=== PATIENT | male | born 1940 | race Caucasian/White ===

== ENCOUNTER 2022-07-08 18:10 | Emergency (ER) | payer MEDICARE, BC, SELFPAY ==
[2022-07-08 18:13] VITALS: BP 151/81; PULSE 91; TEMP 36.2; O2SAT 97; BMI 35.3
--- NOTE | 2022-07-08 18:26 | CRLHL7_ITS ---
For Patients: As a result of the Cures Act, medical imaging exams and procedure reports are released immediately into your electronic medical record. You may view this report before your referring provider. If you have questions, please contact your health care provider. INDICATION: Cough, weakness. TECHNIQUE: Chest 1 views. COMPARISON: None. FINDINGS: Cardiovascular and mediastinum: Cardiomediastinal silhouette is within normal limits. Lungs and pleural spaces: Lungs are clear. No sign of pleural effusion. No pneumothorax. Bones and soft tissues: No significant findings. Median sternotomy wires appear to be intact. IMPRESSION: No acute cardiopulmonary process identified. Dictated by Dimas Crenshaw MD @ 07/08/2022 7:23:04 PM (Electronically Signed)
--- NOTE | 2022-07-08 18:28 | ED.GENADULT ---
HPI - General Adult General Chief complaint: Weakness Stated complaint: Possible stroke Time Seen by Provider: 07/08/22 18:20 History of Present Illness HPI narrative: This 82-year-old male comes in with his because of generalized weakness. He states that he has had a cough and upper respiratory symptoms for the past week. 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 Today after lunch he was unable to have enough strength to get back up into the combine. He does not report any unilateral weakness. He is able to ambulate. He does have a history of a stroke with some right-sided weakness that occurred 7 years ago. He has recovered reasonably well from this. He does not report any fevers. He does not report any shortness of breath. He states that he has been working in a [employer] conditions and states that the corn he was harvesting few days ago head smut. Related Data Home Medications Medication Instructions Recorded Confirmed amlodipine 5 mg tablet mg 07/08/22 clopidogrel 75 mg tablet mg 07/08/22 hydrochlorothiazide 25 mg tablet mg 07/08/22 metoprolol tartrate 50 mg tablet mg 07/08/22 pravastatin 40 mg tablet mg 07/08/22 Allergies Allergy/AdvReac Type Severity Reaction Status Date / Time No Known Drug Allergies Allergy Verified 07/08/22 18:17 Review of Systems Status of ROS: Reports: 10 or more systems reviewed and unremarkable except as noted in History and below Narrative: Constitutional: No fevers, no weight gain or loss. Eyes: No discharge. No vision changes. HENT: No sore throat, no ear pain. Some nasal congestion. Cardiovascular: No chest pain, no palpitations. Respiratory: No shortness of breath, no wheezes. He does report a cough. Gastrointestinal: No abdominal pain, no vomiting, no diarrhea. Genitourinary: No dysuria, no hematuria. Musculoskeletal: Normal range of motion. Skin: No rashes, no pruritis. Neurological: No dizziness, sensory change, speech change. He reports generalized weakness but no unilateral weakness. Endo/Heme/Allergies: No bruising or bleeding. No polydipsia. Pysch: no suicidality, no anxiety, no insomnia. All other systems reviewed and are negative. PFSH PFSH Social History Smoking Status: Former smoker How often do you have a drink containing alcohol: 4 or more times a week How many standard drinks containing alcohol do you have on a typical day: 1 or 2 AUDIT-C Alcohol total score: 4 Non-prescribed substance use: denies use Exam Narrative: Exam Narrative: Constitutional: Well-developed, well-nourished, no acute distress. HEENT: Normocephalic, atraumatic. Neck: Normal range of motion. Nontender. Supple. Heart: Regular. No murmurs. Normal rate. Intact distal pulses. Lungs: Clear to auscultation. No chest discomfort. No wheezes, rhonchi, or rales. Abdomen: Normal bowel sounds. Nontender. No rebound tenderness. Genitalia: Deferred. Back: No midline tenderness. Normal range of motion. Extremities: Normal range of motion. No injury. Skin: Intact. No rash. Warm. No erythema or pallor. Neurologic: No altered sensation. No weakness. Alert and oriented. No unilateral weakness. No facial asymmetry. He is able to ambulate. He needed some assistance when getting from sitting position to standing but was able to transfer without assistance. Psychiatric: No suicidality. No anxiety or depression. No insomnia. Nursing notes and vitals signs are reviewed. Const: Vital Signs, click to edit/add: Vital Signs - 24 hr 07/08/22 18:13 Temperature 97.2 F L Pulse Rate [Pulse Oximeter] 91 Blood Pressure [Ri ght Upper Arm] 151/81 H Pulse Oximetry 97 Oxygen Delivery Me thod Room Air Course Vital Signs Vital signs: Initial Vital Signs Temperature 97.2 F L 07/08/22 18:13 Temperature Source Temporal Artery Scan 07/08/22 18:13 Pulse Rate 91 07/08/22 18:13 Blood Pressure 151/81 H 07/08/22 18:13 Blood Pressure Mean 104 07/08/22 18:13 Blood Pressure Position Supine 07/08/22 18:13 Pulse Oximetry 97 07/08/22 18:13 Oxygen Delivery Method 07/08/22 18:13 Vital Signs Temperature 97.2 F L 07/08/22 18:13 Pulse Rate 91 07/08/22 18:13 Blood Pressure 151/81 H 07/08/22 18:13 Pulse Oximetry 97 07/08/22 18:13 Oxygen Delivery Method 07/08/22 18:13 Temperature 97.2 F L 07/08/22 18:13 Pulse Rate 91 07/08/22 18:13 Blood Pressure 151/81 H 07/08/22 18:13 Pulse Oximetry 97 07/08/22 18:13 Oxygen Delivery Method 07/08/22 18:13 Medical Decision Making MDM Narrative Medical decision making narrative: This patient comes in reporting generalized weakness that came on today. He also has had a cough for about a week. He arrives with normal vital signs except for slightly elevated blood pressure at the time. X-ray imaging of his chest shows no acute pulmonary disease. Additionally lab results returned with reassuring findings. His COVID and influenza tests also are negative. 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 His lab and imaging results are rather reassuring today but I did explain to him that his body may be telling him especially at his age that he needs to give time for rest and recovery. He is okay with this plan and is reassured with the results of testing done here. He will use [id number] medicines as needed and directed. Lab Data Labs: Lab Results 07/08/22 07/08/22 07/08/22 Range/Units 18:40 18:40 18:40 WBC 10.13 (4.50-11.00) K/uL RBC 4.66 (4.30-5.90) m/uL Hgb 14.6 (13.5-17.5) gm/dL Hct 44.0 (37.0-53.0) % MCV 94 (80-100) fL MCH 31 (26-34) pg MCHC 33 (32-36) gm/dL RDW Coeff of Stephanie 13.2 (11.5-15.5) % Plt Count 288 (140-440) K/uL Neut % (Auto) 69.9 (42.0-72.0) % Lymph % (Auto) 19.4 L (20-44) % Wilbarger % (Auto) 7.3 (0.0-11.0) % Eos % (Auto) 2.5 (0.0-7.0) % Baso % (Auto) 0.6 (0.0-3.0) % Neut # (Auto) 7.08 H (1.7-7.0) K/uL Lymph # (Auto) 2.00 (0.90-2.90) K/uL Wilbarger # (Auto) 0.70 (0.00-0.90) K/UL Eos # (Auto) 0.25 (0.00-0.50) K/uL Baso # (Auto) 0.06 (0.00-0.30) K/uL Abs Immat Gran (auto) 0.03 (0.00-0.30) K/uL Sodium 139 (135-149) mmol/L Potassium 3.8 (3.6-5.1) mmol/L Chloride 101 (96-114) mmol/L Carbon Dioxide 30 (20-32) mmol/L BUN 27 (7-30) mg/dL Creatinine 1.7 H (0.5-1.5) mg/dL Estimated Creat Clear 34.59 Estimated GFR 40 ml/min Glucose 160 H (60-115) mg/dL Calcium 10.0 (8.4-10.6) mg/dL NT-Pro-B Natriuret Pep 505 H (0-450) PG/mL SARS-CoV-2 (PCR) Negative SARS-CoV-2 (Negative) Influenza Type A (PCR) Negative PCR FLU A (Negative) Influenza Type B (PCR) Negative PCR FLU B (Negative) POC Troponin I (0.01-0.04) ng/ml 07/08/22 Range/Units 18:45 WBC (4.50-11.00) K/uL RBC (4.30-5.90) m/uL Hgb (13.5-17.5) gm/dL Hct (37.0-53.0) % MCV (80-100) fL MCH (26-34) pg MCHC (32-36) gm/dL RDW Coeff of Stephanie (11.5-15.5) % Plt Count (140-440) K/uL Neut % (Auto) (42.0-72.0) % Lymph % (Auto) (20-44) % Wilbarger % (Auto) (0.0-11.0) % Eos % (Auto) (0.0-7.0) % Baso % (Auto) (0.0-3.0) % Neut # (Auto) (1.7-7.0) K/uL Lymph # (Auto) (0.90-2.90) K/uL Wilbarger # (Auto) (0.00-0.90) K/UL Eos # (Auto) (0.00-0.50) K/uL Baso # (Auto) (0.00-0.30) K/uL Abs Immat Gran (auto) (0.00-0.30) K/uL Sodium (135-149) mmol/L Potassium (3.6-5.1) mmol/L Chloride (96-114) mmol/L Carbon Dioxide (20-32) mmol/L BUN (7-30) mg/dL Creatinine (0.5-1.5) mg/dL Estimated Creat Clear Estimated GFR ml/min Glucose (60-115) mg/dL Calcium (8.4-10.6) mg/dL NT-Pro-B Natriuret Pep (0-450) PG/mL SARS-CoV-2 (PCR) (Negative) Influenza Type A (PCR) (Negative) Influenza Type B (PCR) (Negative) POC Troponin I 0.00 L (0.01-0.04) ng/ml Imaging Data Chest x-ray: Radiologist's impression: No acute cardiopulmonary process identified. ECG Data Attestation: I personally reviewed and interpreted this ECG as follows: Interpretation: Normal sinus rhythm. Rate is 89 beats per minute. There are no ST or T-wave abnormalities. There is a right bundle branch block. Discharge Plan Discharge Clinical Impression: Acute upper respiratory infection Patient Disposition: Home, Self-Care Condition: Stable Additional Instructions: Use [id number] medicines as needed and directed. Follow up with MD or return if worsening symptoms happen. Prescriptions: No Action pravastatin 40 mg tablet Label Comments: TAKE 1 TABLET BY MOUTH AT BEDTIME clopidogrel 75 mg tablet Label Comments: TAKE 1 TABLET BY MOUTH ONCE DAILY amlodipine 5 mg tablet Label Comments: TAKE 1 TABLET BY MOUTH ONCE DAILY metoprolol tartrate 50 mg tablet Label Comments: TAKE 1 TABLET BY MOUTH TWICE DAILY hydrochlorothiazide 25 mg tablet Label Comments: TAKE 1 TABLET BY MOUTH ONCE DAILY Follow Up/Referrals: Masoud Torres MD [Primary Care Provider] - Stand Alone Forms: [employer] Info Instructions
[2022-07-08 19:00] VITALS: BP 163/85; PULSE 85; RESP 18; O2SAT 95
[2022-07-08 19:03] LABS: Basophils Absolute Auto 0.06 K/uL (0.00-0.30); Basophils Percent Auto 0.6 % (0.0-3.0); Eosinophils Absolute Auto 0.25 K/uL (0.00-0.50); Eosinophils Percent Auto 2.5 % (0.0-7.0); Hemoglobin* 14.6 gm/dL (13.5-17.5); Immature Granulocytes Abs Auto 0.03 K/uL (0.00-0.30); Lymphocytes Percent Auto 19.4 % (20-44); Mean Corpuscular HGB Conc 33 gm/dL (32-36); Mean Corpuscular Hemoglobin 31 pg (26-34); Mean Corpuscular Volume 94 fL (80-100); Monocytes Percent Auto 7.3 % (0.0-11.0); Neutrophils Absolute Auto 7.08 K/uL (1.7-7.0); Neutrophils Percent Auto 69.9 % (42.0-72.0); Platelet Count* 288 K/uL (140-440); RDW Coefficient of Variation % 13.2 % (11.5-15.5); Red Blood Count 4.66 m/uL (4.30-5.90); White Blood Count* 10.13 K/uL (4.50-11.00)
[2022-07-08 19:06] LABS: Slide Review Reflex No
[2022-07-08 19:14] LABS: Chloride* 101 mmol/L (96-114); Potassium* 3.8 mmol/L (3.6-5.1); Sodium* 139 mmol/L (135-149)
[2022-07-08 19:16] LABS: Carbon Dioxide* 30 mmol/L (20-32); Creatinine* 1.7 mg/dL (0.5-1.5); Est. Creatinine Clearance* 34.59; Estimated Glomerular Filt Rate 40 ml/min
[2022-07-08 19:17] LABS: Blood Urea Nitrogen* 27 mg/dL (7-30); Glucose* 160 mg/dL (60-115)
[2022-07-08 19:25] LABS: NT Pro B Type NatriureticPept* 505 PG/mL (0-450)
[2022-07-08 19:39] LABS: PCR FLU A Negative PCR FLU A (Negative); PCR FLU B Negative PCR FLU B (Negative)
[2022-07-08 20:36] LABS: SARS PCR* Negative SARS-CoV-2 (Negative)
[2022-07-08 21:00] VITALS: BP 144/79; BP 158/105; PULSE 82; PULSE 87; RESP 18; RESP 20; O2SAT 93; O2SAT 97
== END 2022-07-08 21:48 | disposition home or self-care (01) ==
PROVIDERS: Emergency Provider Emergency Medicine Emergency Medical Services; PCP Family Medicine
DX: J06.9 Acute upper respiratory infection, unspecified (principal); I45.10 Unspecified right bundle-branch block; Z20.822 Contact with and (suspected) exposure to COVID-19; Z87.891 Personal history of nicotine dependence
CPT/HCPCS: 36415; 71045; 80048; 83880; 85025; 87631; 93005; 99284; 99285

== ENCOUNTER 2022-09-19 10:19 | Outpatient (CLI) | payer MEDICARE, BC, SELFPAY ==
[2022-09-19 22:16] LABS: Albumin* 4.3 g/dL (3.3-5.0); Chloride* 106 mmol/L (96-114)
[2022-09-19 22:17] LABS: Potassium* 4.5 mmol/L (3.6-5.1); Sodium* 142 mmol/L (135-149)
[2022-09-19 22:19] LABS: Aspartate Amino Transferase* 21 U/L (12-35); Bilirubin Total* 0.6 mg/dL (0.1-1.5); Blood Urea Nitrogen* 21 mg/dL (7-30); Carbon Dioxide* 32 mmol/L (20-32); Creatinine* 1.3 mg/dL (0.5-1.5); Estimated Glomerular Filt Rate 55 ml/min; Total Protein* 6.8 g/dL (6.0-8.3)
[2022-09-19 22:20] LABS: Alanine Aminotransferase* 23 U/L (4-50); Alkaline Phosphatase* 107 U/L (40-150); Calcium* 9.8 mg/dL (8.4-10.6); Glucose* 142 mg/dL (60-115); Uric Acid* 7.8 mg/dL (2.2-8.4)
== END 2022-09-19 10:20 | disposition home or self-care (01) ==
PROVIDERS: PCP Family Medicine; Visit Provider Family Medicine
DX: Z00.00 Encounter for general adult medical examination without abnormal findings (principal); N18.9 Chronic kidney disease, unspecified; N28.9 Disorder of kidney and ureter, unspecified; M10.9 Gout, unspecified; I10 Essential (primary) hypertension; E78.5 Hyperlipidemia, unspecified
CPT/HCPCS: 80053; 84550

== ENCOUNTER 2022-10-03 09:50 | Outpatient (CLI) | payer MEDICARE, BC, SELFPAY ==
[2022-10-03 15:34] LABS: Microalbumin Creatinine Ratio 0 mg/g (0-30); Microalbumin Urine 1 mg/dL
== END 2022-10-03 09:51 | disposition home or self-care (01) ==
PROVIDERS: PCP Family Medicine; Visit Provider Family Medicine
DX: E11.9 Type 2 diabetes mellitus without complications (principal)
CPT/HCPCS: 82043; 82570

== ENCOUNTER 2023-01-21 11:12 | Outpatient (CLI) | payer MEDICARE, BC, SELFPAY | END 2023-01-21 11:13 | disposition home or self-care (01) | LOC: FRMREF 11:25 | PROVIDERS: PCP Family Medicine; Visit Provider Family Medicine | DX: I10 Essential (primary) hypertension (principal); R73.03 Prediabetes | CPT/HCPCS: 80048 ==

== ENCOUNTER 2023-05-01 07:57 | Outpatient (CLI) | payer MEDICARE, BC, SELFPAY ==
--- NOTE | 2023-05-01 08:00 | CRLHL7_ITS ---
For Patients: As a result of the 21st Century Cures Act, medical imaging exams and procedure reports are released immediately into your electronic medical record. You may view this report before your referring provider. If you have questions, please contact your health care provider. INDICATION: Low back pain. COMPARISON: None. TECHNIQUE: Noncontrast CT lumbar spine. FINDINGS: Mild lumbar curve convex the left. In sagittal plane, normal vertebral body alignment. Chronic mild loss of height and anterior wedging of the L1 and L2 vertebral bodies. T12-L1: No spinal canal neural foraminal narrowing. L1-2: Disc degeneration. Diffuse disc bulge. No narrowing of the spinal canal. No neural foraminal narrowing. Mild facet arthropathy. L2-3: Advanced disc degeneration and loss disc height. Vacuum disc. Diffuse disc bulge. Mild narrowing of spinal canal. Mild narrowing of the left neural foramen. No narrowing of the right neural foramen. Moderate arthropathy. L3-4: Advanced disc degeneration. Loss disc height. Vacuum disc. Diffuse disc bulge. Mild narrowing of spinal canal. Mild narrowing of the right neural foramen. No narrowing of the left neural foramen. Moderate facet arthropathy. L4-5: Advanced disc degeneration. Loss disc height. Vacuum disc. Diffuse disc bulge and endplate osteophytic ridging eccentric to the right. Combined with facet arthropathy, there is moderate severe narrowing of spinal canal. Bilateral subarticular recess narrowing with potential impingement of the traversing L5 nerve roots bilaterally. Mild narrowing of bilateral foramina. Moderate arthropathy. L5-S1: Advanced disc degeneration. Loss of disc height. Vacuum disc. No narrowing of spinal canal. No impingement of the traversing S1 nerve roots. Moderate narrowing of bilateral foramina. Moderate arthropathy. Degenerative changes of the SI joints. Vascular calcifications. IMPRESSION: 1. Mild lumbar curve convex to the left. Incidental plane, normal alignment. No fractures. 2. Lumbar spondylosis. 3. At L2-3, mild narrowing of the spinal canal and left neural foramina 4. At L3-4, mild narrowing of the spinal canal and right neuroforamen 5. At L4-5, moderate to severe narrowing of spinal canal. Potential impingement of the traversing L5 nerve roots. Mild narrowing of the bilateral foramina 6. At L5-S1, moderate narrowing of the bilateral neural foramina Please note that all CT scans at this facility use dose modulation, iterative reconstruction, and/or weight-based dosing when appropriate to reduce radiation dose to as low as reasonably achievable. Dictated by Denis Rivera MD @ 05/01/2023 1:26:35 PM (Electronically Signed)
== END 2023-05-01 07:58 | disposition home or self-care (01) ==
LOC: CT 07:58
PROVIDERS: PCP Family Medicine; Visit Provider Nurse Practitioner
DX: M54.50 Low back pain, unspecified (principal); M47.896 Other spondylosis, lumbar region; M51.26 Other intervertebral disc displacement, lumbar region
CPT/HCPCS: 72131

== ENCOUNTER 2023-08-10 08:36 | Inpatient (IN) | payer MEDICARE, BC, SELFPAY ==
[2023-08-10] VITALS (16 sets, daily range): BP systolic 115–168; BP diastolic 59–106; PULSE 84–112; RESP 20–32; TEMP 36.6–37.3; O2SAT 89–98; BMI 36.9; BMI 36.7
--- NOTE | 2023-08-10 09:02 | CRLHL7_ITS ---
For Patients: As a result of the Cures Act, medical imaging exams and procedure reports are released immediately into your electronic medical record. You may view this report before your referring provider. If you have questions, please contact your health care provider. INDICATION: Difficulty breathing. Wheezing. RSV. COMPARISON: 08/08/2023. FINDINGS: Two views of the chest were obtained. The cardiac silhouette and pulmonary vasculature are within normal limits. There are sternotomy wires. The lungs are clear bilaterally. IMPRESSION: Stable chest x-ray. No evidence of acute pulmonary disease. Dictated by Jarrell Prado MD @ 08/10/2023 10:15:20 AM (Electronically Signed)
[2023-08-10] MEDS: IPRAT-ALBUT 0.5-2.5 MG/3 ML NEB 1 NEB IH ×4 (09:19→21:02)
--- NOTE | 2023-08-10 09:21 | RESP.RT ---
Patient was diagnosed with RSV. He has been coughing up green mucus lately. He has swollen feet and SATs improved when head of bed was elevated. He is currently SATing 95% on 2L NC.
[2023-08-10] MEDS: predniSONE 20 MG TABLET PO (09:29)
[2023-08-10 09:34] LABS: Lactate* 1.2 mmol/L (0.5-1.9)
[2023-08-10 09:37] LABS: Basophils Absolute Auto 0.02 K/uL (0.00-0.30); Basophils Percent Auto 0.2 % (0.0-3.0); Eosinophils Absolute Auto 0.03 K/uL (0.00-0.50); Eosinophils Percent Auto 0.4 % (0.0-7.0); Hematocrit 39.8 % (37.0-53.0); Hemoglobin* 12.8 gm/dL (13.5-17.5); Immature Granulocytes Abs Auto 0.03 K/uL (0.00-0.30); Immature Granulocytes Pct Auto 0.4 %; Lymphocytes Percent Auto 6.8 % (20-44); Mean Corpuscular HGB Conc 32 gm/dL (32-36); Mean Corpuscular Hemoglobin 31 pg (26-34); Mean Corpuscular Volume 98 fL (80-100); Monocytes Percent Auto 5.7 % (0.0-11.0); Neutrophils Percent Auto 86.5 % (42.0-72.0); Platelet Count* 222 K/uL (140-440); RDW Coefficient of Variation % 13.4 % (11.5-15.5); Red Blood Count 4.08 m/uL (4.30-5.90); White Blood Count* 8.08 K/uL (4.50-11.00)
[2023-08-10 09:54] LABS: Chloride* 101 mmol/L (96-114); Potassium* 4.6 mmol/L (3.6-5.1); Sodium* 138 mmol/L (135-149)
[2023-08-10 09:56] LABS: Creatinine* 1.3 mg/dL (0.5-1.5); Est. Creatinine Clearance* 43.05; Estimated Glomerular Filt Rate 55 ml/min
[2023-08-10 09:57] LABS: Anion Gap 8 mEq/L (7-15); Blood Urea Nitrogen* 24 mg/dL (7-30); Calcium* 9.1 mg/dL (8.4-10.6); Carbon Dioxide* 29 mmol/L (20-32); Glucose* 194 mg/dL (60-115)
[2023-08-10 09:59] LABS: Slide Review Reflex No
[2023-08-10 10:11] LABS: NT Pro B Type NatriureticPept* 1200 pg/mL; Troponin I* < 0.01 ng/mL (0.01-0.04)
--- NOTE | 2023-08-10 10:25 | ED_ITS ---
HPI - General Adult General Chief complaint: Shortness of Breath/Dyspnea Stated complaint: difficulty breathing, RSV, wheezing Time Seen by Provider: 08/10/23 08:45 Source: patient Mode of arrival: ambulatory Limitations: no limitations History of Present Illness HPI narrative: 83-year-old male with an extensive medical history consistent of obesity, diabetes type 2, dysphagia, gout, restless legs syndrome, hearing loss, renal insufficiency, hypertension, hyperlipidemia, GERD, history of CVA and coronary artery disease presenting today with shortness of breath. Patient states that he was diagnosed with RSV on 08/06/2023 any has progressively gotten slightly worse every day since. He states that he was sent home with a steroid and nebulizers which have not been helping. He denies fevers or chills. No nausea or vomiting. Appetite has been good. Shortness of breath gets worse with any activity. Related Data Home Medications Medication Instructions Recorded Confirmed sildenafil 100 mg tablet 100 mg PO .As Needed PRN 07/23/22 08/08/23 aspirin 325 mg tablet 325 mg PO QDAY 08/26/22 08/08/23 omeprazole magnesium 20 mg 20 mg PO QDAY 11/11/22 08/08/23 tablet,delayed release (Prilosec OTC) Previous Rx's Medication Instructions Recorded pramipexole 0.5 mg tablet 0.5 mg PO QHS #90 tabs 08/26/22 amlodipine 5 mg tablet 5 mg PO QDAY #90 tabs 09/19/22 losartan 25 mg tablet 25 mg PO QDAY #90 tabs 09/19/22 metoprolol tartrate 50 mg tablet 50 mg PO BID #180 tabs 09/19/22 tamsulosin 0.4 mg capsule 0.4 mg PO QHS #90 caps 09/19/22 amoxicillin 500 mg capsule 2,000 mg (4 x 500 mg) PO ONCE PRN 12/17/22 dental #16 caps benzonatate 200 mg capsule 200 mg PO TID PRN cough #30 caps 07/17/23 albuterol sulfate 2.5 mg/3 mL 2.5 mg (3 mL) inhalation Q4-6H PRN 08/08/23 (0.083 %) solution for nebulization shortness of breath or wheezing #75 mL prednisone 20 mg tablet 40 mg (2 x 20 mg) PO QDAY 5 days 08/08/23 #10 tabs Allergies Allergy/AdvReac Type Severity Reaction Status Date / Time lisinopril AdvReac Intermediate Chest Pain Verified 08/08/23 14:27 pravastatin AdvReac Mild myalgias Verified 08/08/23 14:27 tramadol AdvReac Unknown Dizziness Verified 08/08/23 14:27 [facility] Medical History (Updated 08/10/23 @ 12:15 by Radha Mckeon MD) RSV (acute bronchiolitis due to respiratory syncytial virus) ?J21.0 - Acute bronchiolitis due to respiratory syncytial virus (ICD-10) Wheezing ?R06.2 - Wheezing (ICD-10) Sinusitis ?J32.9 - Chronic sinusitis, unspecified (ICD-10) Shortness of breath ?R06.02 - Shortness of breath (ICD-10) Cough ?R05.9 - Cough, unspecified (ICD-10) Constipation ?K59.00 - Constipation, unspecified (ICD-10) Calculus of kidney (07/01/12) ?N20.0 - Calculus of kidney (ICD-10) Surgical History 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) ?Z96.659 - Presence of unspecified artificial knee joint (ICD-10) History of tonsillectomy (08/20/10) ?Z90.89 - Acquired absence of other organs (ICD-10) History of coronary artery bypass surgery (08/20/10) ?Z95.1 - Presence of aortocoronary bypass graft (ICD-10) Family History Mother Coronary artery disease Family/Other High blood pressure Social History Smoking Status: Former smoker Do you use any of these nicotine containing products: None Second hand tobacco smoke exposure: No How often do you have a drink containing alcohol: 2-4 times a month How many standard drinks containing alcohol do you have on a typical day: 1 or 2 How often do you have six or more drinks on one occasion: Never AUDIT-C Alcohol total score: 2 Non-prescribed substance use: denies use Little interest or pleasure in doing things: not at all Feeling down, depressed, or hopeless: not at all service: No Exam Const: Vital Signs, click to edit/add: Vital Signs - 24 hr 08/10/23 08:46 08/10/23 09:00 08/10/23 09:00 Temperature 99.2 F Pulse Rate 93 Pulse Rate [Apical ] 94 Respiratory Rate 32 H Blood Pressure Blood Pressure [Ri ght Upper Arm] 137/83 Pulse Oximetry 89 91 95 Oxygen Delivery Me thod Room Air Nasal Cannula Oxygen Flow Rate 2 08/10/23 09:02 08/10/23 09:02 08/10/23 09:32 Temperature Pulse Rate 93 91 Pulse Rate [Apical ] Respiratory Rate 22 20 Blood Pressure 136/75 123/75 Blood Pressure [Ri ght Upper Arm] Pulse Oximetry 94 95 95 Oxygen Delivery Me thod Oxygen Flow Rate 08/10/23 09:56 08/10/23 10:02 08/10/23 10:32 Temperature Pulse Rate 97 94 93 Pulse Rate [Apical ] Respiratory Rate 22 22 23 Blood Pressure 135/106 H 142/102 H 136/73 Blood Pressure [Ri ght Upper Arm] Pulse Oximetry 95 94 92 Oxygen Delivery Me thod Nasal Cannula Oxygen Flow Rate 2 08/10/23 11:02 Temperature Pulse Rate 96 Pulse Rate [Apical ] Respiratory Rate 22 Blood Pressure 132/69 Blood Pressure [Ri ght Upper Arm] Pulse Oximetry 94 Oxygen Delivery Me thod Nasal Cannula Oxygen Flow Rate 2 Course Course ED Course: IV was established, patient placed on 2 L nasal cannula were brings his oxygen saturation into the low 90s. Patient received a DuoNeb and another 20 mg of prednisone for a total of 60 mg of prednisone this morning. Patient did take 40 mg of prednisone just prior to coming to the ED. EKG, read by me, shows sinus arrhythmia with a first-degree AV block, right bundle-branch block, pulse 95. Labs were drawn, results unremarkable. Chest x-ray, read by me, does not show any acute infiltrates. COVID and influenza negative, RSV was not redone. Vital Signs Vital signs: Initial Vital Signs Temperature 99.2 F 08/10/23 08:46 Temperature Source Temporal Artery Scan 08/10/23 08:46 Pulse Rate 94 08/10/23 08:46 Pulse Rhythm Regular 08/10/23 08:46 Respiratory Rate 32 H 08/10/23 08:46 Blood Pressure 137/83 11/19/23 08:46 Blood Pressure Mean 101 08/10/23 08:46 Blood Pressure Position Supine 08/10/23 08:46 Pulse Oximetry 89 08/10/23 08:46 Oxygen Delivery Method Room Air 08/10/23 08:46 Vital Signs Temperature 99.2 F 08/10/23 08:46 Pulse Rate 94 08/10/23 08:46 Respiratory Rate 32 H 08/10/23 08:46 Blood Pressure 137/83 08/10/23 08:46 Pulse Oximetry 89 08/10/23 08:46 Oxygen Delivery Method Room Air 08/10/23 08:46 Temperature 99.2 F 08/10/23 08:46 Pulse Rate 96 08/10/23 11:02 Respiratory Rate 22 08/10/23 11:02 Blood Pressure 132/69 08/10/23 11:02 Pulse Oximetry 94 08/10/23 11:02 Oxygen Delivery Method Nasal Cannula 08/10/23 11:02 Oxygen Flow Rate 2 08/10/23 11:02 Medications Administered Medications: Discontinued Medications Generic Name Dose Route Start Last Admin Trade Name Neyq PRN Reason Stop Dose Admin Albuterol/Ipratropium 1 neb 08/10/23 09:02 08/10/23 09:19 Iprat-Albut 0.5-2.5 Mg/3 Ml [facility] 08/10/23 09:03 1 neb ONCE ONE Administration Albuterol/Ipratropium 1 [facility] 08/10/23 11:40 08/10/23 12:03 Iprat-Albut 0.5-2.5 Mg/3 Ml [facility] 08/10/23 11:41 1 neb ONCE ONE Administration Prednisone 60 mg 08/10/23 09:02 08/10/23 09:29 Prednisone 10 Mg Tablet PO 08/10/23 09:03 Not Given ONCE ONE Prednisone 20 mg 08/10/23 09:23 08/10/23 09:29 Prednisone 20 Mg Tablet PO 08/10/23 09:24 20 mg ONCE ONE Administration Medical Decision Making MDM Narrative Medical decision making narrative: 83-year-old male with RSV and hypoxia. Patient will be admitted for further management. Lab Data Lab results reviewed: Yes I reviewed the patient's lab results Labs: Lab Results 08/10/23 08/10/23 08/10/23 Range/Units 09:25 09:25 09:25 WBC 8.08 (4.50-11.00) K/uL RBC 4.08 L (4.30-5.90) m/uL Hgb 12.8 L (13.5-17.5) gm/dL Hct 39.8 (37.0-53.0) % MCV 98 (80-100) fL MCH 31 (26-34) pg MCHC 32 (32-36) gm/dL RDW Coeff of Stephanie 13.4 (11.5-15.5) % Plt Count 222 (140-440) K/uL Neut % (Auto) 86.5 H (42.0-72.0) % Lymph % (Auto) 6.8 L (20-44) % [place] % (Auto) 5.7 (0.0-11.0) % Eos % (Auto) 0.4 (0.0-7.0) % Baso % (Auto) 0.2 (0.0-3.0) % Neut # (Auto) 7.00 (1.7-7.0) K/uL Lymph # (Auto) 0.50 L (0.90-2.90) K/uL [place] # (Auto) 0.50 (0.00-0.90) K/UL Eos # (Auto) 0.03 (0.00-0.50) K/uL Baso # (Auto) 0.02 (0.00-0.30) K/uL Abs Immat Gran (auto) 0.03 (0.00-0.30) K/uL Imm/Tot Granulo (auto) 0.4 % Sodium Cancelled 138 Potassium Cancelled 4.6 Chloride Cancelled Carbon Dioxide Anion Gap BUN Creatinine Estimated Creat Clear Estimated GFR Glucose Lactate (0.5-1.9) mmol/L Calcium Troponin I (0.01-0.04) ng/mL NT-Pro-B Natriuret Pep pg/mL SARS-CoV-2 (PCR) (Negative) Influenza Type A (PCR) (Negative) Influenza Type B (PCR) (Negative) 08/10/23 08/10/23 08/10/23 Range/Units 09:25 09:25 09:25 WBC (4.50-11.00) K/uL RBC (4.30-5.90) m/uL Hgb (13.5-17.5) gm/dL Hct (37.0-53.0) % MCV (80-100) fL MCH (26-34) pg MCHC (32-36) gm/dL RDW Coeff of Stephanie (11.5-15.5) % Plt Count (140-440) K/uL Neut % (Auto) (42.0-72.0) % Lymph % (Auto) (20-44) % [place] % (Auto) (0.0-11.0) % Eos % (Auto) (0.0-7.0) % Baso % (Auto) (0.0-3.0) % Neut # (Auto) (1.7-7.0) K/uL Lymph # (Auto) (0.90-2.90) K/uL [place] # (Auto) (0.00-0.90) K/UL Eos # (Auto) (0.00-0.50) K/uL Baso # (Auto) (0.00-0.30) K/uL Abs Immat Gran (auto) (0.00-0.30) K/uL Imm/Tot Granulo (auto) % Sodium Potassium Chloride 101 Carbon Dioxide Cancelled 29 Anion Gap Cancelled 8 BUN Cancelled Creatinine Estimated Creat Clear Estimated GFR Glucose Lactate (0.5-1.9) mmol/L Calcium Troponin I (0.01-0.04) ng/mL NT-Pro-B Natriuret Pep pg/mL SARS-CoV-2 (PCR) (Negative) Influenza Type A (PCR) (Negative) Influenza Type B (PCR) (Negative) 08/10/23 08/10/23 08/10/23 Range/Units 09:25 09:25 09:25 WBC (4.50-11.00) K/uL RBC (4.30-5.90) m/uL Hgb (13.5-17.5) gm/dL Hct (37.0-53.0) % MCV (80-100) fL MCH (26-34) pg MCHC (32-36) gm/dL RDW Coeff of Stephanie (11.5-15.5) % Plt Count (140-440) K/uL Neut % (Auto) (42.0-72.0) % Lymph % (Auto) (20-44) % [place] % (Auto) (0.0-11.0) % Eos % (Auto) (0.0-7.0) % Baso % (Auto) (0.0-3.0) % Neut # (Auto) (1.7-7.0) K/uL Lymph # (Auto) (0.90-2.90) K/uL [place] # (Auto) (0.00-0.90) K/UL Eos # (Auto) (0.00-0.50) K/uL Baso # (Auto) (0.00-0.30) K/uL Abs Immat Gran (auto) (0.00-0.30) K/uL Imm/Tot Granulo (auto) % Sodium Potassium Chloride Carbon Dioxide Anion Gap BUN 24 Creatinine Cancelled 1.3 Estimated Creat Clear Cancelled 43.05 Estimated GFR Cancelled Glucose Lactate (0.5-1.9) mmol/L Calcium Troponin I (0.01-0.04) ng/mL NT-Pro-B Natriuret Pep pg/mL SARS-CoV-2 (PCR) (Negative) Influenza Type A (PCR) (Negative) Influenza Type B (PCR) (Negative) 08/10/23 08/10/23 08/10/23 Range/Units 09:25 09:25 09:25 WBC (4.50-11.00) K/uL RBC (4.30-5.90) m/uL Hgb (13.5-17.5) gm/dL Hct (37.0-53.0) % MCV (80-100) fL MCH (26-34) pg MCHC (32-36) gm/dL RDW Coeff of Stephanie (11.5-15.5) % Plt Count (140-440) K/uL Neut % (Auto) (42.0-72.0) % Lymph % (Auto) (20-44) % [place] % (Auto) (0.0-11.0) % Eos % (Auto) (0.0-7.0) % Baso % (Auto) (0.0-3.0) % Neut # (Auto) (1.7-7.0) K/uL Lymph # (Auto) (0.90-2.90) K/uL [place] # (Auto) (0.00-0.90) K/UL Eos # (Auto) (0.00-0.50) K/uL Baso # (Auto) (0.00-0.30) K/uL Abs Immat Gran (auto) (0.00-0.30) K/uL Imm/Tot Granulo (auto) % Sodium Potassium Chloride Carbon Dioxide Anion Gap BUN Creatinine Estimated Creat Clear Estimated GFR 55 Glucose Cancelled 194 H Lactate 1.2 (0.5-1.9) mmol/L Calcium Cancelled 9.1 Troponin I < 0.01 L (0.01-0.04) ng/mL NT-Pro-B Natriuret Pep 1200 pg/mL SARS-CoV-2 (PCR) (Negative) Influenza Type A (PCR) (Negative) Influenza Type B (PCR) (Negative) 08/10/23 Range/Units Unknown WBC (4.50-11.00) K/uL RBC (4.30-5.90) m/uL Hgb (13.5-17.5) gm/dL Hct (37.0-53.0) % MCV (80-100) fL MCH (26-34) pg MCHC (32-36) gm/dL RDW Coeff of Stephanie (11.5-15.5) % Plt Count (140-440) K/uL Neut % (Auto) (42.0-72.0) % Lymph % (Auto) (20-44) % [place] % (Auto) (0.0-11.0) % Eos % (Auto) (0.0-7.0) % Baso % (Auto) (0.0-3.0) % Neut # (Auto) (1.7-7.0) K/uL Lymph # (Auto) (0.90-2.90) K/uL [place] # (Auto) (0.00-0.90) K/UL Eos # (Auto) (0.00-0.50) K/uL Baso # (Auto) (0.00-0.30) K/uL Abs Immat Gran (auto) (0.00-0.30) K/uL Imm/Tot Granulo (auto) % Sodium Potassium Chloride Carbon Dioxide Anion Gap BUN Creatinine Estimated Creat Clear Estimated GFR Glucose Lactate (0.5-1.9) mmol/L Calcium Troponin I (0.01-0.04) ng/mL NT-Pro-B Natriuret Pep pg/mL SARS-CoV-2 (PCR) Negative SARS-CoV-2 (Negative) Influenza Type A (PCR) Negative PCR FLU A (Negative) Influenza Type B (PCR) Negative PCR FLU B (Negative) Imaging Data Chest x-ray: Attestation: I have reviewed the pertinent imaging results. Radiologist's impression: INDICATION: Difficulty breathing. Wheezing. RSV. COMPARISON: 08/08/2023. FINDINGS: Two views of the chest were obtained. The cardiac silhouette and pulmonary vasculature are within normal limits. There are sternotomy wires. The lungs are clear bilaterally. IMPRESSION: Stable chest x-ray. No evidence of acute pulmonary disease. ECG Data Attestation: I personally reviewed and interpreted this ECG as follows: Discharge Plan Discharge Clinical Impression: Respiratory syncytial virus (RSV), Hypoxia Patient Disposition: Admitted As Observation Condition: Stable Prescriptions: No Action sildenafil 100 mg tablet 100 mg PO .As Needed PRN Rx Instructions: TAKE 1 TAB 1 HR PRIOR TO INTERCOURSE aspirin 325 mg tablet 325 mg PO QDAY pramipexole 0.5 mg tablet 0.5 mg PO QHS Qty: 90 3RF omeprazole magnesium [Prilosec OTC] 20 mg tablet,delayed release (DR/EC) 20 mg PO QDAY amlodipine 5 mg tablet 5 mg PO QDAY Qty: 90 3RF losartan 25 mg tablet 25 mg PO QDAY Qty: 90 3RF metoprolol tartrate 50 mg tablet 50 mg PO BID Qty: 180 3RF tamsulosin 0.4 mg capsule 0.4 mg PO QHS Qty: 90 3RF benzonatate 200 mg capsule 200 mg PO TID PRN (Reason: cough) Qty: 30 2RF albuterol sulfate 2.5 mg /3 mL (0.083 %) solution for nebulization 2.5 mg inhalation Q4-6H PRN (Reason: shortness of breath or wheezing) Qty: 75 0RF prednisone 20 mg tablet 40 mg PO QDAY 5 Days Qty: 10 0RF amoxicillin 500 mg capsule 2,000 mg PO ONCE PRN (Reason: dental) Qty: 16 1RF Rx Instructions: 1 hour prior to dental procedure Follow Up/Referrals: Leela Chu MD [Primary Care Provider] -
[2023-08-10 12:18] LABS: PCR FLU A Negative PCR FLU A (Negative); PCR FLU B Negative PCR FLU B (Negative); PCR RSV POSITIVE PCR RSV (Negative); SARS PCR* Negative SARS-CoV-2 (Negative)
--- NOTE | 2023-08-10 12:22 | ED.NURSE ---
report was given to Gisella cano to [phone] via w/c.
--- NOTE | 2023-08-10 15:05 | P.IMHP_ITS ---
Hospitalist- H&P: HPI History of Present Illness Date Seen: 08/10/23 Chief complaint: difficulty breathing, RSV, wheezing Narrative: Iker Brown is a 83 year old male with history of coronary artery disease, stroke and hypertension admitted through the emergency department with 5 day history of cough, congestion, wheezing and dyspnea. In the emergency department he had a positive RSV test and a normal chest x-ray and hypoxia. He has been exposed to his grandchildren who have had respiratory illness He has no history of lung disease. He had a remote history of smoking having quit in 1987. Has never been diagnosed with asthma or COPD. 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 He has not had a fever or chest pain. At baseline he reports that he can only walk about 100 ft before getting winded. Activity is also limited because he has a bad back and weak legs which give out if he tries to walk any further. He had a three-vessel bypass in the past. Subsequently no chest pain but fairly limited activity due to dyspnea. He had been on atorvastatin due to his previous strokes and coronary artery disease. Because he was complaining of pain in his legs this was stopped early this year. His legs are still hurting the same and he is willing to try restarting atorvastatin. His previous history of elevated blood sugars without diagnosis of diabetes Review of Systems Narrative: Patient reports fairly severe dyspnea, back pain, leg pain and weakness related to activity. He tells me he can walk about 100 ft before his back and legs and breathing give out. He gets up to void about 3 or 4 times at night. Reports he was evaluated for sleep apnea at [facility] a year ago and they said he did not have it [facility] Medical History (Updated 08/10/23 @ 15:25 by Jarrell Harden MD) COPD (chronic obstructive pulmonary disease) ?J44.9 - Chronic obstructive pulmonary disease, unspecified (ICD-10) Anemia ?D64.9 - Anemia, unspecified (ICD-10) Elevated blood sugar ?R73.9 - Hyperglycemia, unspecified (ICD-10) BPH associated with nocturia ?N40.1 - Benign prostatic hyperplasia with lower urinary tract symptoms (ICD- 10) ?R35.1 - Nocturia (ICD-10) Rotator cuff arthropathy of both shoulders ?M12.811 - Other specific arthropathies, not elsewhere classified, right shoulder (ICD-10) ?M12.812 - Other specific arthropathies, not elsewhere classified, left shoulder (ICD-10) RSV (acute bronchiolitis due to respiratory syncytial virus) ?J21.0 - Acute bronchiolitis due to respiratory syncytial virus (ICD-10) Wheezing ?R06.2 - Wheezing (ICD-10) Sinusitis ?J32.9 - Chronic sinusitis, unspecified (ICD-10) Shortness of breath ?R06.02 - Shortness of breath (ICD-10) Cough ?R05.9 - Cough, unspecified (ICD-10) Constipation ?K59.00 - Constipation, unspecified (ICD-10) Calculus of kidney (07/01/12) ?N20.0 - Calculus of kidney (ICD-10) Surgical History 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 He quit smoking in 1987. He had rarely drinks alcohol. He walks with a cane. Code status is full. is healthcare power of contracts attorney. What is your current living situation?: I presently have a place to live Problems where you live: no known problems Problems where you live details: none In the past 12 months, utilities in danger of being shut off: no In past 12 months, lack of transportation kept you from medical appts, meetings, work, or getting things needed for daily living: no In the past 12 mos, have been you worried that your food would run out before you had money to buy more?: never true In the past 12 mos, the food you bought just didn't last and you didn't have money to buy more?: never true Highest level of school completed/degree received: high school graduate Smoking Status: Former smoker Do you use any of these nicotine containing products: None Second hand tobacco smoke exposure: No How often do you have a drink containing alcohol: monthly or less How many standard drinks containing alcohol do you have on a typical day: 1 or 2 How often do you have six or more drinks on one occasion: Less than monthly AUDIT-C Alcohol total score: 2 Non-prescribed substance use: denies use Caffeine: Yes How often does anyone, including family, friends and others, physically hurt you : never How often does anyone, including family, friends and others, insult or talk down to you: never How often does anyone, including family, friends and others, threaten you with harm: never How often does anyone, including family, friends and others, scream or curse at you: never Little interest or pleasure in doing things: not at all Feeling down, depressed, or hopeless: not at all service: No Meds Home Medications and Allergies Home Medications Medication Instructions Recorded Confirmed Type sildenafil 100 mg tablet 100 mg PO .As Needed PRN 07/23/22 08/08/23 History aspirin 325 mg tablet 325 mg PO DAILY 08/26/22 08/10/23 History omeprazole magnesium 20 mg 20 mg PO DAILY 11/11/22 08/10/23 History tablet,delayed release (Prilosec OTC) amlodipine 5 mg tablet 5 mg PO DAILY 08/10/23 08/10/23 History losartan 25 mg tablet 25 mg PO DAILY 08/10/23 08/10/23 History prednisone 20 mg tablet 40 mg PO DAILY 08/10/23 08/10/23 History Allergies Allergy/AdvReac Type Severity Reaction Status Date / Time lisinopril AdvReac Intermediate Chest Pain Verified 08/08/23 14:27 pravastatin AdvReac Mild myalgias Verified 08/08/23 14:27 tramadol AdvReac Unknown Dizziness Verified 08/08/23 14:27 Exam Narrative: Exam Narrative: He is alert and appears in no distress. He gives his own history. Eyes normal. Oropharynx with small airway. Mild erythema. Neck is supple without mass or adenopathy. No stridor. Respirations with diffusely diminished breath sounds. Coarse expiratory wheezing is heard throughout all lung alejandre. Prolongation of expiratory phase noted. Cardiovascular: S1, S2, regular rate and rhythm. Distant heart sounds. Abdomen: Bowel sounds active. Abdomen is soft without tenderness or mass. Extremities with 1+ edema bilaterally. He has diminished but present pedal pulses. He is unable to lift either arm beyond about 45-60 degrees of a bee duction in the shoulder. Const: Vital Signs, click to edit/add: Vital Signs - 24 hr 08/10/23 08:46 08/10/23 09:00 08/10/23 09:00 Temperature 99.2 F Pulse Rate 93 Pulse Rate [Apical ] 94 Pulse Rate [Left B rachial] Respiratory Rate 32 H Blood Pressure Blood Pressure [Le ft Arm] Blood Pressure [Ri ght Upper Arm] 137/83 Pulse Oximetry 89 91 95 Oxygen Delivery Me thod Room Air Nasal Cannula Oxygen Flow Rate 2 08/10/23 09:02 08/10/23 09:02 08/10/23 09:32 Temperature Pulse Rate 93 91 Pulse Rate [Apical ] Pulse Rate [Left B rachial] Respiratory Rate 22 20 Blood Pressure 136/75 123/75 Blood Pressure [Le ft Arm] Blood Pressure [Ri ght Upper Arm] Pulse Oximetry 94 95 95 Oxygen Delivery Me thod Oxygen Flow Rate 08/10/23 09:56 08/10/23 10:02 08/10/23 10:32 Temperature Pulse Rate 97 94 93 Pulse Rate [Apical ] Pulse Rate [Left B rachial] Respiratory Rate 22 22 23 Blood Pressure 135/106 H 142/102 H 136/73 Blood Pressure [Le ft Arm] Blood Pressure [Ri ght Upper Arm] Pulse Oximetry 95 94 92 Oxygen Delivery Me thod Nasal Cannula Oxygen Flow Rate 2 08/10/23 11:02 08/10/23 11:32 08/10/23 12:00 Temperature Pulse Rate 96 84 92 Pulse Rate [Apical ] Pulse Rate [Left B rachial] Respiratory Rate 22 24 22 Blood Pressure 132/69 115/59 L Blood Pressure [Le ft Arm] Blood Pressure [Ri ght Upper Arm] Pulse Oximetry 94 93 93 Oxygen Delivery Me thod Nasal Cannula Oxygen Flow Rate 2 08/10/23 12:15 08/10/23 12:45 08/10/23 12:45 Temperature 98.8 F Pulse Rate 96 Pulse Rate [Apical ] Pulse Rate [Left B rachial] 99 Respiratory Rate 32 H Blood Pressure Blood Pressure [Le ft Arm] 148/79 H Blood Pressure [Ri ght Upper Arm] Pulse Oximetry 98 94 94 Oxygen Delivery Me thod Nasal Cannula Nasal Cannula Oxygen Flow Rate 2 2 Documenting provider has reviewed patient's vital signs: yes Hospitalist - H&P: Result Labs Labs: Short CBC 08/10/23 Range/Units 09:25 WBC 8.08 (4.50-11.00) K/uL Hgb 12.8 L (13.5-17.5) gm/dL Hct 39.8 (37.0-53.0) % Plt Count 222 (140-440) K/uL BMP 08/10/23 08/10/23 08/10/23 09:25 09:25 09:25 Sodium Cancelled 138 Potassium Cancelled 4.6 Chloride Cancelled Carbon Dioxide BUN Creatinine Glucose Calcium 08/10/23 08/10/23 08/10/23 09:25 09:25 09:25 Sodium Potassium Chloride 101 Carbon Dioxide Cancelled 29 BUN Cancelled 24 Creatinine Cancelled Glucose Calcium 08/10/23 08/10/23 08/10/23 09:25 09:25 09:25 Sodium Potassium Chloride Carbon Dioxide BUN Creatinine 1.3 Glucose Cancelled 194 H Calcium Cancelled 9.1 Cardiac Enzymes 08/10/23 Range/Units 09:25 Troponin I < 0.01 L (0.01-0.04) ng/mL ECG Attestation: I personally reviewed and interpreted this ECG as follows: (Normal sinus rhythm. Right bundle branch block) ECG interpretation date: 08/10/23 Imaging Chest x-ray: Radiologist's impression: INDICATION: Difficulty breathing. Wheezing. RSV. COMPARISON: 08/08/2023. FINDINGS: Two views of the chest were obtained. The cardiac silhouette and pulmonary vasculature are within normal limits. There are sternotomy wires. The lungs are clear bilaterally. IMPRESSION: Stable chest x-ray. No evidence of acute pulmonary disease. Assessment and Plan Assessment and plan (1) RSV (acute bronchiolitis due to respiratory syncytial virus): Status: Acute (2) COPD (chronic obstructive pulmonary disease): Problem comment: Patient likely has underlying COPD though this diagnosis is not previously been made and he has not had previous treatment. 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 Clinically appears to have a COPD exacerbation currently, due to RSV Status: Acute (3) Hypoxia: Problem comment: Due to COPD and RSV Status: Acute (4) Coronary artery disease: Problem comment: Resume atorvastatin Status: Acute (5) Renal insufficiency: Problem comment: Stage 3 chronic kidney disease Status: Acute (6) BPH associated with nocturia: Problem comment: Check bladder scan Status: Acute (7) Elevated blood sugar: Problem comment: Past elevated blood sugars without diagnosis of diabetes. Now on glucocorticoids so blood sugars will likely increase. check hemoglobin A1c. Status: Acute (8) Anemia: Problem comment: Hemoglobin 12.8 on admission 08/10/2023. No previous history of anemia. No bleeding. Follow and trend Status: Acute (9) Chronic back pain: Status: Acute (10) Obesity (BMI 30-39.9): Status: Acute (11) Thigh pain: Status: Acute (12) CVA (cerebral vascular accident): Problem comment: History of a stroke causing left-sided weakness in 2021. Treated at [facility]. Had a stroke affecting his right side in about 2014. He reports strength is now approximately symmetric but bilaterally weak. He walks using a cane Status: Acute Plan Patient is admitted to the hospital for management of hypoxia related to RSV infection and likely COPD exacerbation. Will initiate limited evaluation of other medical problems including elevated blood sugar, anemia, physical disability from back problems and lower extremity pain and weakness and decon ditioning. Total time spent today is 85 minutes, 50 minutes in coordination of care and discussing with patient and and other providers ongoing evaluation management of hypoxic respiratory failure in RSV infection
--- NOTE | 2023-08-10 19:44 | PC.NURSE ---
shift note: pt to room 259 via wc from ED. LS course with insp/exp wheezing & rhonchi. pt tachypneic and using accessory muscles. pt on 2L pnc with sats 94-6%. Pt denies c.p or pressure. lt side of face with discoloration. tele in place.
[2023-08-10] MEDS: METOPROLOL TARTRATE 50 MG TABLET PO (21:02)
[2023-08-10] MEDS: ACETAMINOPHEN 650 MG TABLET ER PO (21:02)
[2023-08-10] MEDS: ATORVASTATIN CALCIUM 40 MG TABLET PO (21:03)
[2023-08-10] MEDS: ENOXAPARIN 40 MG/0.4 ML INJ SUBCUT (21:03)
[2023-08-10] MEDS: PRAMIPEXOLE 0.5 MG TABLET PO (21:04)
[2023-08-10] MEDS: TAMSULOSIN HCL 0.4 MG CAPSULE PO (21:04)
[2023-08-10] MEDS: SODIUM CHLORIDE 0.9 % (FLUSH) 10 ML SYRINGE 5 ML IVF (21:04)
[2023-08-11] VITALS (7 sets, daily range): BP systolic 143–196; BP diastolic 67–92; PULSE 80–109; RESP 20–24; TEMP 36.5–37.2; O2SAT 91–97
[2023-08-11] MEDS: ALBUTEROL SULFATE 2.5 MG/3 ML VIAL.NEB NEB (04:00)
[2023-08-11 06:11] LABS: HCO3 VBG 30 mmol/L (21-28); PCO2 VBG 47 mmHG (40-50); PO2 VBG 63.3 mmHG (25-47); pH VBG 7.419 (7.32-7.43)
[2023-08-11] MEDS: OMEPRAZOLE 20 MG CAPSULE DR PO (06:17)
[2023-08-11 06:23] LABS: Basophils Absolute Auto 0.02 K/uL (0.00-0.30); Basophils Percent Auto 0.2 % (0.0-3.0); Eosinophils Absolute Auto 0.03 K/uL (0.00-0.50); Eosinophils Percent Auto 0.3 % (0.0-7.0); Hematocrit 38.1 % (37.0-53.0); Hemoglobin* 12.3 gm/dL (13.5-17.5); Immature Granulocytes Abs Auto 0.04 K/uL (0.00-0.30); Immature Granulocytes Pct Auto 0.4 %; Lymphocytes Percent Auto 17.5 % (20-44); Mean Corpuscular HGB Conc 32 gm/dL (32-36); Mean Corpuscular Hemoglobin 31 pg (26-34); Mean Corpuscular Volume 97 fL (80-100); Neutrophils Absolute Auto 7.77 K/uL (1.7-7.0); Neutrophils Percent Auto 71.6 % (42.0-72.0); Platelet Count* 210 K/uL (140-440); RDW Coefficient of Variation % 13.7 % (11.5-15.5); Red Blood Count 3.93 m/uL (4.30-5.90); White Blood Count* 10.84 K/uL (4.50-11.00)
[2023-08-11 06:28] LABS: Slide Review Reflex No
[2023-08-11 06:37] LABS: Hemoglobin A1C* 6.3 % (0-5.6)
[2023-08-11 07:32] LABS: Chloride* 100 mmol/L (96-114)
[2023-08-11 07:33] LABS: Potassium* 4.2 mmol/L (3.6-5.1); Sodium* 136 mmol/L (135-149)
[2023-08-11 07:35] LABS: Anion Gap 7 mEq/L (7-15); Carbon Dioxide* 29 mmol/L (20-32); Creatinine* 1.3 mg/dL (0.5-1.5); Est. Creatinine Clearance* 41.65; Estimated Glomerular Filt Rate 55 ml/min
[2023-08-11 07:36] LABS: Blood Urea Nitrogen* 29 mg/dL (7-30); Glucose* 148 mg/dL (60-115)
[2023-08-11] MEDS: ACETAMINOPHEN 650 MG TABLET ER PO ×3 (09:15→20:26)
[2023-08-11] MEDS: IPRAT-ALBUT 0.5-2.5 MG/3 ML NEB 1 NEB IH ×4 (09:16→20:26)
[2023-08-11] MEDS: AMLODIPINE 5 MG TABLET PO (09:16)
[2023-08-11] MEDS: LOSARTAN POTASSIUM 50 MG TABLET 25 MG PO (09:16)
[2023-08-11] MEDS: predniSONE 20 MG TABLET 40 MG PO (09:16)
[2023-08-11] MEDS: ASPIRIN EC 325 MG TABLET PO (09:17)
[2023-08-11] MEDS: METOPROLOL TARTRATE 50 MG TABLET PO ×2 (09:17→20:25)
[2023-08-11] MEDS: SODIUM CHLORIDE 0.9 % (FLUSH) 10 ML SYRINGE 5 ML IVF ×2 (09:18→20:27)
--- NOTE | 2023-08-11 10:28 | P.IMPN_ITS ---
Progress Note: A&P Assessment and plan (1) Hypoxia: Problem details: - 2/2 RSV/COPD Status: Acute (2) RSV (acute bronchiolitis due to respiratory syncytial virus): Problem details: - + 08/10/23 Status: Acute (3) COPD (chronic obstructive pulmonary disease): Problem details: - likely has underlying COPD given previous hx of smoking and exposures. Clinically appears to have a COPD exacerbation currently, due to RSV - continue nebs and steroids, no need for antibiotics at this time Status: Acute (4) Coronary artery disease: Problem details: - continue home medications Status: Acute (5) Renal insufficiency: Problem details: - stage 3 chronic kidney disease Status: Acute (6) Elevated blood sugar: Problem details: - h/o elevated blood sugars without diagnosis of diabetes; on glucocorticoids - A1C 6.3 Status: Acute (7) Anemia: Problem details: - Hgb 12.8 on admission 08/10/2023. No previous history of anemia, no bleeding - Follow and trend - on PPI Status: Acute Plan - per above - Lovenox for ppx - home when off of supplemental oxygen, possibly as early as 08/12 Subjective Date Seen: 08/11/23 Interval history: Jose continues to feel little better each day, not yet back to baseline. He remains on low-dose supplemental oxygen. He is eating well, denies any concerns for hospitalist team. Exam Narrative: Exam Narrative: GEN: Alert and oriented, sitting comfortably in bedside chair HEENT: EOMIs bilaterally, no rhinorrhea CV: Heart rate in the 90s during my exam, regular rhythm, no concerning murmurs R: Rhonchi throughout, mild bibasilar wheezing Ext: wwp, no concerning edema Skin: No concerning skin lesions or rashes on exposed skin Neuro: Nonfocal Psych: Appropriate Const: Vital Signs, click to edit/add: Vital Signs - 24 hr 08/10/23 10:32 08/10/23 11:02 08/10/23 11:32 Temperature Pulse Rate 93 96 84 Pulse Rate [Left B rachial] Pulse Rate [Pulse Oximeter] Respiratory Rate 23 22 24 Blood Pressure 136/73 132/69 115/59 L Blood Pressure [Le ft Arm] Pulse Oximetry 92 94 93 Oxygen Delivery Me thod Nasal Cannula Oxygen Flow Rate 2 08/10/23 12:00 08/10/23 12:15 08/10/23 12:45 Temperature 98.8 F Pulse Rate 92 96 Pulse Rate [Left B rachial] 99 Pulse Rate [Pulse Oximeter] Respiratory Rate 22 32 H Blood Pressure Blood Pressure [Le ft Arm] 148/79 H Pulse Oximetry 93 98 94 Oxygen Delivery Me thod Nasal Cannula Oxygen Flow Rate 2 08/10/23 12:45 08/10/23 15:00 08/10/23 15:06 Temperature Pulse Rate 111 H Pulse Rate [Left B rachial] Pulse Rate [Pulse Oximeter] Respiratory Rate Blood Pressure Blood Pressure [Le ft Arm] Pulse Oximetry 94 92 Oxygen Delivery Me thod Nasal Cannula Nasal Cannula Oxygen Flow Rate 2 2 08/10/23 15:06 08/10/23 20:50 08/10/23 20:50 Temperature 98.4 F 97.8 F Pulse Rate 109 H Pulse Rate [Left B rachial] 108 H 112 H Pulse Rate [Pulse Oximeter] Respiratory Rate 26 H 26 H Blood Pressure Blood Pressure [Le ft Arm] 140/87 H 168/93 H Pulse Oximetry 94 92 Oxygen Delivery Me thod Nasal Cannula Nasal Cannula Oxygen Flow Rate 1.5 1.5 08/10/23 20:50 08/10/23 20:50 08/10/23 23:00 Temperature Pulse Rate Pulse Rate [Left B rachial] Pulse Rate [Pulse Oximeter] 112 H 86 Respiratory Rate 26 H 26 H 22 Blood Pressure Blood Pressure [Le ft Arm] Pulse Oximetry 92 92 Oxygen Delivery Me thod Nasal Cannula Nasal Cannula Oxygen Flow Rate 1.5 1.5 08/11/23 03:00 08/11/23 07:00 08/11/23 07:55 Temperature Pulse Rate 106 H Pulse Rate [Left B rachial] Pulse Rate [Pulse Oximeter] 96 109 H Respiratory Rate 22 Blood Pressure Blood Pressure [Le ft Arm] 153/84 H Pulse Oximetry 91 Oxygen Delivery Me thod Nasal Cannula Oxygen Flow Rate 1.5 08/11/23 07:55 08/11/23 07:55 Temperature 98.9 F Pulse Rate Pulse Rate [Left B rachial] Pulse Rate [Pulse Oximeter] 103 H Respiratory Rate 22 Blood Pressure Blood Pressure [Le ft Arm] 144/67 H Pulse Oximetry 94 94 Oxygen Delivery Me thod Nasal Cannula OxyM ask Nasal Cannula Oxygen Flow Rate 2 2 Labs Labs: Laboratory Results - last 24 hr 08/10/23 08/10/23 08/10/23 Unknown Unknown Unknown WBC RBC Hgb Hct MCV MCH MCHC RDW Coeff of Stephanie Plt Count Neut % (Auto) Lymph % (Auto) [place] % (Auto) Eos % (Auto) Baso % (Auto) Neut # (Auto) Lymph # (Auto) [place] # (Auto) Eos # (Auto) Baso # (Auto) Abs Immat Gran (auto) Imm/Tot Granulo (auto) VBG pH VBG pCO2 VBG pO2 VBG HCO3 Sodium Potassium Chloride Carbon Dioxide Anion Gap BUN Creatinine Estimated Creat Clear Estimated GFR Glucose Hemoglobin A1c Calcium SARS-CoV-2 (PCR) Negative SARS-CoV-2 Cancelled Influenza Type A (PCR) Negative PCR FLU A Cancelled Influenza Type B (PCR) Negative PCR FLU B RSV (PCR) 08/10/23 08/11/23 Unknown 06:03 WBC 10.84 RBC 3.93 L Hgb 12.3 L Hct 38.1 MCV 97 MCH 31 MCHC 32 RDW Coeff of Stephanie 13.7 Plt Count 210 Neut % (Auto) 71.6 Lymph % (Auto) 17.5 L [place] % (Auto) 10.0 Eos % (Auto) 0.3 Baso % (Auto) 0.2 Neut # (Auto) 7.77 H Lymph # (Auto) 1.90 [place] # (Auto) 1.10 H Eos # (Auto) 0.03 Baso # (Auto) 0.02 Abs Immat Gran (auto) 0.04 Imm/Tot Granulo (auto) 0.4 VBG pH 7.419 VBG pCO2 47 VBG pO2 63.3 H VBG HCO3 30 H Sodium 136 Potassium 4.2 Chloride 100 Carbon Dioxide 29 Anion Gap 7 BUN 29 Creatinine 1.3 Estimated Creat Clear 41.65 Estimated GFR 55 Glucose 148 H Hemoglobin A1c 6.3 H Calcium 9.0 SARS-CoV-2 (PCR) Influenza Type A (PCR) Influenza Type B (PCR) Cancelled RSV (PCR) POSITIVE PCR RSV A
--- NOTE | 2023-08-11 16:06 | PC.NURSE ---
Tele indicates NSR. Please see eMar for meds provided on day shift. Pt has adventitious lung sounds throughout, scheduled duonebs administered. Updated Alison visiting at bedside. He remains on droplet precautions for Positive RSV. Report to Hali THOMAS for evening shift.
[2023-08-11] MEDS: PRAMIPEXOLE 0.5 MG TABLET PO (20:25)
[2023-08-11] MEDS: TAMSULOSIN HCL 0.4 MG CAPSULE PO (20:25)
[2023-08-11] MEDS: ENOXAPARIN 40 MG/0.4 ML INJ SUBCUT (20:26)
[2023-08-11] MEDS: ATORVASTATIN CALCIUM 40 MG TABLET PO (20:26)
--- NOTE | 2023-08-11 22:52 | PC.NURSE ---
Patient alert and oriented. Ambulates SBA to BR and chair. Tolerating reg diet. 2 L NC sating in 96%. LS diminished with wheezing and Rhonchi. Productive cough.
[2023-08-12] VITALS (8 sets, daily range): BP systolic 121–157; BP diastolic 69–91; PULSE 76–104; RESP 20–24; TEMP 36.4–36.8; O2SAT 90–96
[2023-08-12] MEDS: ALBUTEROL SULFATE 2.5 MG/3 ML VIAL.NEB NEB (02:14)
--- NOTE | 2023-08-12 05:57 | PC.NURSE ---
END OF SHIFT NOTE: PT PLEASANT AND COOPERATIVE. A&Ox3. PT DENIES CP AND N/V. SOB WITH ACTIVITY.?AMBULATES SBA/INDEPENDENT. VSS ON SUPPLEMENTAL O2 VIA NC; AFEBRILE. TELE READS NSR WITH 1ST DEGREE HB. PRN NEB TX FOR WHEEZING. PT CALL LIGHT WITHIN PT?S REACH.?
[2023-08-12] MEDS: OMEPRAZOLE 20 MG CAPSULE DR PO (06:18)
[2023-08-12 06:44] LABS: Basophils Percent Auto 0.2 % (0.0-3.0); Eosinophils Percent Auto 0.3 % (0.0-7.0); Hemoglobin* 12.1 gm/dL (13.5-17.5); Immature Granulocytes Pct Auto 0.5 %; Lymphocytes Percent Auto 25.9 % (20-44); Mean Corpuscular HGB Conc 32 gm/dL (32-36); Mean Corpuscular Hemoglobin 31 pg (26-34); Mean Corpuscular Volume 97 fL (80-100); Monocytes Percent Auto 7.6 % (0.0-11.0); Neutrophils Percent Auto 65.5 % (42.0-72.0); Platelet Count* 215 K/uL (140-440); RDW Coefficient of Variation % 13.7 % (11.5-15.5); White Blood Count* 11.02 K/uL (4.50-11.00)
[2023-08-12 06:46] LABS: HCO3 VBG 33 mmol/L (21-28); PCO2 VBG 55 mmHG (40-50); pH VBG 7.384 (7.32-7.43)
[2023-08-12 06:48] LABS: Slide Review Reflex No
[2023-08-12 07:12] LABS: Chloride* 100 mmol/L (96-114); Potassium* 4.3 mmol/L (3.6-5.1); Sodium* 138 mmol/L (135-149)
[2023-08-12 07:15] LABS: Anion Gap 6 mEq/L (7-15); Blood Urea Nitrogen* 31 mg/dL (7-30); Carbon Dioxide* 32 mmol/L (20-32); Creatinine* 1.2 mg/dL (0.5-1.5); Est. Creatinine Clearance* 45.13; Estimated Glomerular Filt Rate 60 ml/min; Glucose* 145 mg/dL (60-115)
[2023-08-12] MEDS: SODIUM CHLORIDE 0.9 % (FLUSH) 10 ML SYRINGE 5 ML IVF ×2 (09:38→20:59)
[2023-08-12] MEDS: AMLODIPINE 5 MG TABLET PO (09:39)
[2023-08-12] MEDS: predniSONE 20 MG TABLET 40 MG PO (09:40)
[2023-08-12] MEDS: METOPROLOL TARTRATE 50 MG TABLET PO ×2 (09:41→20:58)
[2023-08-12] MEDS: ASPIRIN EC 325 MG TABLET PO (09:41)
[2023-08-12] MEDS: LOSARTAN POTASSIUM 50 MG TABLET 25 MG PO (09:41)
[2023-08-12] MEDS: IPRAT-ALBUT 0.5-2.5 MG/3 ML NEB 1 NEB IH ×4 (09:42→20:58)
[2023-08-12] MEDS: ACETAMINOPHEN 650 MG TABLET ER PO ×3 (09:54→20:57)
--- NOTE | 2023-08-12 11:07 | P.IMPN_ITS ---
Progress Note: A&P Assessment and plan (1) Hypoxia: Problem details: - 2/2 RSV/COPD, working with RT to taper supplemental oxygen Status: Acute (2) RSV (acute bronchiolitis due to respiratory syncytial virus): Problem details: - + 08/10/23 Status: Acute (3) COPD (chronic obstructive pulmonary disease): Problem details: - likely has underlying COPD given previous hx of smoking and exposures. Clinically appears to have a COPD exacerbation currently, due to RSV - mild CO2 retention on VBG 08/12 - RT following - continue nebs and steroids, no need for antibiotics at this time Status: Acute (4) Coronary artery disease: Problem details: - continue home medications Status: Acute (5) Renal insufficiency: Problem details: - stage 3 chronic kidney disease Status: Acute (6) Elevated blood sugar: Problem details: - h/o elevated blood sugars without diagnosis of diabetes; on glucocorticoids - A1C 6.3 Status: Acute (7) Anemia: Problem details: - Hgb 12.8 on admission 08/10/2023. No previous history of anemia, no bleeding - Follow and trend - on PPI Status: Acute Plan - per above - Lovenox for ppx - home with when stable on RA - updated at bedside, questions answered Subjective Date Seen: 08/12/23 Interval history: Jose has been able to taper supplemental oxygen, but not yet tolerant of room air. He continues to feel little better each day, but does endorse not being back to baseline. RT is working with patient. No pain, tolerating p.o. intake, no other concerns for hospitalist team this morning. Exam Narrative: Exam Narrative: GEN: Alert HEENT: EOMIs bilaterally, no scleral icterus CV: RRR, No concerning murmurs R: Expiratory wheezing noted throughout bilateral lung alejandre, no crackles, no rales Ext: wwp, no concerning edema Skin: No concerning skin lesions or rashes on exposed skin Neuro: Nonfocal Psych: Appropriate Const: Vital Signs, click to edit/add: Vital Signs - 24 hr 08/11/23 13:30 08/11/23 15:00 08/11/23 15:00 Temperature 98.2 F Pulse Rate 101 H Pulse Rate [Pulse Oximeter] 90 86 Respiratory Rate 22 22 Blood Pressure [Le ft Arm] 143/75 H Pulse Oximetry 96 Oxygen Delivery Me thod Nasal Cannula Oxygen Flow Rate 2 08/11/23 15:00 08/11/23 15:00 08/11/23 19:00 Temperature 98.0 F 98.0 F Pulse Rate Pulse Rate [Pulse Oximeter] 101 H 100 Respiratory Rate 22 22 20 Blood Pressure [Le ft Arm] 196/76 H 158/77 H Pulse Oximetry 96 95 96 Oxygen Delivery Me thod Nasal Cannula Nasal Cannula Nasal Cannula Oxygen Flow Rate 2 3 3 08/11/23 23:30 08/11/23 23:30 08/11/23 23:30 Temperature Pulse Rate 80 Pulse Rate [Pulse Oximeter] 82 Respiratory Rate 24 24 Blood Pressure [Le ft Arm] Pulse Oximetry 97 Oxygen Delivery Me thod Nasal Cannula Oxygen Flow Rate 1.5 08/11/23 23:30 08/12/23 02:16 08/12/23 09:42 Temperature 97.7 F 97.6 F Pulse Rate Pulse Rate [Pulse Oximeter] 82 80 94 Respiratory Rate 24 24 20 Blood Pressure [Le ft Arm] 149/92 H 153/74 H 121/91 H Pulse Oximetry 97 96 94 Oxygen Delivery Me thod Nasal Cannula Nasal Cannula Nasal Cannula Oxygen Flow Rate 1.5 1.5 1.5 Labs Labs: Laboratory Results - last 24 hr 08/12/23 05:50 WBC 11.02 H RBC 3.90 L Hgb 12.1 L Hct 38.0 MCV 97 MCH 31 MCHC 32 RDW Coeff of Stephanie 13.7 Plt Count 215 Neut % (Auto) 65.5 Lymph % (Auto) 25.9 [place] % (Auto) 7.6 Eos % (Auto) 0.3 Baso % (Auto) 0.2 Neut # (Auto) 7.20 H Lymph # (Auto) 2.90 [place] # (Auto) 0.80 Eos # (Auto) 0.00 Baso # (Auto) 0.00 Abs Immat Gran (auto) 0.10 Imm/Tot Granulo (auto) 0.5 VBG pH 7.384 VBG pCO2 55 H VBG pO2 83.0 H VBG HCO3 33 H Sodium 138 Potassium 4.3 Chloride 100 Carbon Dioxide 32 Anion Gap 6 L BUN 31 H Creatinine 1.2 Estimated Creat Clear 45.13 Estimated GFR 60 Glucose 145 H Calcium 9.0
--- NOTE | 2023-08-12 11:42 | CRLHL7_ITS ---
For Patients: As a result of the Century Cures Act, medical imaging exams and procedure reports are released immediately into your electronic medical record. You may view this report before your referring provider. If you have questions, please contact your health care provider. INDICATION: Difficulty breathing TECHNIQUE: Chest 1 view COMPARISON: 08/10/23 FINDINGS: Postop changes mediastinum. No consolidative infiltrate. Degenerative changes both shoulders. IMPRESSION: Stable exam. Clear lungs. Dictated by Narciso Quispe MD @ 08/13/2023 6:22:32 AM (Electronically Signed)
--- NOTE | 2023-08-12 13:50 | RESP.RT ---
RT assessment with this gentleman. BBS with very coarse exp Rhochi in both lung alejandre. It does sound like expiratory wheezing audibly, but with stethoscope it is a Rhonchi, Had pt do aerobika followed by coughing and BBS improved. Cough is [employer], but pt. reports he does cough stuff up at times. SP02 on 1.5L 96%. Discontinued oxygen and SPO2 is running 87-93%. Pt lives in 1 level house. 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 We did talk about home oxygen, and he states he won't use it. PT reports he has a sleep study after his stroke and he does not have sleep apnea. 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
--- NOTE | 2023-08-12 14:58 | PC.NURSE ---
shift note: vss stable. pt weaned off O2 with sats 92% average. RR continues to increase to 28-32/min with ambulating to bathroom. Pt HR 110's with activity. tele SR with 1 degree block and PVC's. Pt denies c.p or pressure. pt using aerobika q 1hr. pt has dry cough. LS with insp/exp wheezing this a.m. this afternoon LS with course rhonchi. IV gregory patent.
[2023-08-12] MEDS: ATORVASTATIN CALCIUM 40 MG TABLET PO (20:58)
[2023-08-12] MEDS: ENOXAPARIN 40 MG/0.4 ML INJ SUBCUT (20:58)
[2023-08-12] MEDS: PRAMIPEXOLE 0.5 MG TABLET PO (20:59)
[2023-08-12] MEDS: TAMSULOSIN HCL 0.4 MG CAPSULE PO (20:59)
--- NOTE | 2023-08-12 23:51 | PC.NURSE ---
Nursing Care Hours: [id number] Pt this shift calm and cooperative with cares, alert and oriented. No c/o pain. Stable on room air. Audible moist breath sounds, but no labored breathing. SB assist to bathroom x2, spO2 checked when sitting and WNL.
[2023-08-13 03:34] VITALS: BP 149/78; PULSE 87; RESP 24; TEMP 36.6; O2SAT 97
[2023-08-13 06:30] LABS: HCO3 VBG 33 mmol/L (21-28); PCO2 VBG 49 mmHG (40-50); PO2 VBG 56.4 mmHG (25-47); pH VBG 7.431 (7.32-7.43)
[2023-08-13 06:37] LABS: Basophils Percent Auto 0.2 % (0.0-3.0); Eosinophils Percent Auto 0.3 % (0.0-7.0); Hematocrit 37.8 % (37.0-53.0); Hemoglobin* 12.5 gm/dL (13.5-17.5); Immature Granulocytes Pct Auto 1.2 %; Mean Corpuscular HGB Conc 33 gm/dL (32-36); Mean Corpuscular Hemoglobin 32 pg (26-34); Mean Corpuscular Volume 96 fL (80-100); Monocytes Percent Auto 5.3 % (0.0-11.0); Platelet Count* 237 K/uL (140-440); RDW Coefficient of Variation % 13.4 % (11.5-15.5); Red Blood Count 3.94 m/uL (4.30-5.90); White Blood Count* 12.34 K/uL (4.50-11.00)
[2023-08-13 06:39] LABS: Slide Review Reflex No
[2023-08-13] MEDS: OMEPRAZOLE 20 MG CAPSULE DR PO (06:43)
--- NOTE | 2023-08-13 07:02 | PC.NURSE ---
Shift note: On R/A overnight, O2 sats 91-95%. Pt up with SBA to the bathroom, tolerating with some increase of SOB, however recovers quickly.
[2023-08-13 07:07] LABS: Chloride* 99 mmol/L (96-114); Sodium* 138 mmol/L (135-149)
[2023-08-13 07:08] LABS: Potassium* 4.2 mmol/L (3.6-5.1)
[2023-08-13 07:10] LABS: Creatinine* 1.2 mg/dL (0.5-1.5); Est. Creatinine Clearance* 45.13; Estimated Glomerular Filt Rate 60 ml/min
[2023-08-13 07:11] LABS: Anion Gap 7 mEq/L (7-15); Blood Urea Nitrogen* 29 mg/dL (7-30); Calcium* 9.2 mg/dL (8.4-10.6); Carbon Dioxide* 32 mmol/L (20-32); Glucose* 133 mg/dL (60-115)
[2023-08-13 08:28] VITALS: BP 139/74; PULSE 105; PULSE 91; RESP 20; TEMP 36.4; O2SAT 91
[2023-08-13] MEDS: predniSONE 20 MG TABLET 40 MG PO (08:34)
[2023-08-13] MEDS: ASPIRIN EC 325 MG TABLET PO (08:34)
[2023-08-13] MEDS: LOSARTAN POTASSIUM 50 MG TABLET 25 MG PO (08:34)
[2023-08-13] MEDS: IPRAT-ALBUT 0.5-2.5 MG/3 ML NEB 1 NEB IH (08:34)
[2023-08-13] MEDS: METOPROLOL TARTRATE 50 MG TABLET PO (08:35)
[2023-08-13] MEDS: ACETAMINOPHEN 650 MG TABLET ER PO (08:35)
[2023-08-13] MEDS: AMLODIPINE 5 MG TABLET PO (08:35)
[2023-08-13] MEDS: SODIUM CHLORIDE 0.9 % (FLUSH) 10 ML SYRINGE 5 ML IVF (08:35)
--- NOTE | 2023-08-13 08:59 | PM.DS1 ---
DS: Providers Provider Date Seen: 08/13/23 Date of admission: 08/10/23 14:58 Primary care physician: Leela Chu MD Admitting Clinician: Trenton Delong MD Consults: RT, OT, PT Attending Physician on discharge: Rhoda Villalta MD Date of Discharge: 08/13/23 DS: Diagnosis Discharge Diagnosis (1) RSV (acute bronchiolitis due to respiratory syncytial virus): Status: Acute Problem details: - + 08/08/23, associated hypoxic respiratory failure - treated with nebs, supplemental oxygen, steroids - was able to titrate off of supplemental oxygen during stay (2) COPD (chronic obstructive pulmonary disease): Status: Acute Problem details: - likely has underlying COPD given previous hx of smoking and exposures, presentation c/w COPD exacerbation - mild CO2 retention on VBG 08/12 - RT followed during stay, responded well to nebs and steroids, no antibiotics indicated (3) CVA (cerebral vascular accident): Status: Acute Problem details: - h/o CVA causing L-sided weakness, 2021, previous CVA affecting R side 2014 - patient reports strength is now approximately symmetric but bilaterally weak, uses cane at home (4) Coronary artery disease: Status: Acute Problem details: - continue home medications (5) Elevated blood sugar: Status: Acute Problem details: - h/o elevated blood sugars with previous diagnosis of noninsulin dependent DM2 (previous A1C 6.8), on steroids - A1C 6.3 07/2023 (6) Anemia: Status: Acute Problem details: - Hgb 12.8 on admission 08/10/2023, 12.5 on discharge - no previous history of anemia, no bleeding, no GERD symptoms. Treated with PPI during stay - outpatient f/u and workup pending goals of care DS: Summary Hospital Course Hospital Course: Patient is a pleasant 83-year-old male who presented to the hospital with dyspnea and hypoxia in the setting of recent RSV infection. He was admitted to the hospital and placed on supplemental oxygen; treated with nebs and steroids and tolerated this well. RT followed during stay. Iker was able to taper off of supplemental oxygen on hospital day 2, remained stable and appropriate for discharge home on 08/13/23. He will be discharged home on course of prednisone with close PCP follow-up to discuss recent hospital stay, possible COPD diagnosis, new anemia. Status at Discharge Functional status at discharge: uses cane/walker Overall status at discharge: patient is progressing back to baseline Time Spent with Patient Time attestation: Total time spent providing and/or coordinating discharge services: Time spent: Greater than 30 minutes Specific discharge activities: Medication reconciliation, patient Education Exam Narrative: Exam Narrative: GEN: Alert and sitting comfortably in bedside chair HEENT: EOMIs bilaterally, no scleral icterus CV: Regular rhythm with heart rate in the 90s during my exam, no concerning murmurs R: Expiratory wheezing is very mild at bilateral apices this morning, significantly improved. Mild decreased air movement bilateral bases Ext: wwp, no concerning edema Skin: No concerning skin lesions or rashes on exposed skin Psych: Appropriate Const: Vital Signs, click to edit/add: Vital Signs - 24 hr 08/12/23 09:42 08/12/23 11:00 08/12/23 11:16 Temperature Pulse Rate 88 Pulse Rate [Pulse Oximeter] 94 87 Respiratory Rate 20 Blood Pressure [Le ft Arm] 121/91 H 149/72 H Pulse Oximetry 94 94 Oxygen Delivery Me thod Nasal Cannula Nasal Cannula Oxygen Flow Rate 1.5 0.5 08/12/23 15:00 08/12/23 15:00 08/12/23 15:00 Temperature 97.5 F L Pulse Rate Pulse Rate [Pulse Oximeter] 87 99 Respiratory Rate 24 24 24 Blood Pressure [Le ft Arm] 152/69 H Pulse Oximetry 91 93 Oxygen Delivery Me thod Room Air Room Air Oxygen Flow Rate 08/12/23 15:00 08/12/23 19:00 08/12/23 23:00 Temperature 98.3 F Pulse Rate 104 H 76 Pulse Rate [Pulse Oximeter] 100 Respiratory Rate 24 Blood Pressure [Le ft Arm] 156/69 H Pulse Oximetry 90 Oxygen Delivery Me thod Room Air Oxygen Flow Rate 08/12/23 23:00 08/12/23 23:00 08/12/23 23:00 Temperature 98 F Pulse Rate Pulse Rate [Pulse Oximeter] 76 82 Respiratory Rate 24 22 22 Blood Pressure [Le ft Arm] 157/76 H Pulse Oximetry 94 95 Oxygen Delivery Me thod Room Air Room Air Oxygen Flow Rate 08/13/23 03:34 08/13/23 08:28 Temperature 97.9 F 97.6 F Pulse Rate Pulse Rate [Pulse Oximeter] 87 105 H Respiratory Rate 24 20 Blood Pressure [Le ft Arm] 149/78 H 139/74 Pulse Oximetry 97 91 Oxygen Delivery Me thod Room Air Room Air Oxygen Flow Rate DS: Data Data Completed and Pending Labs on day of discharge: Labs from last 24 hours 08/13/23 06:22 WBC 12.34 H RBC 3.94 L Hgb 12.5 L Hct 37.8 MCV 96 MCH 32 MCHC 33 RDW Coeff of Stephanie 13.4 Plt Count 237 Neut % (Auto) 64.0 Lymph % (Auto) 29.0 [place] % (Auto) 5.3 Eos % (Auto) 0.3 Baso % (Auto) 0.2 Neut # (Auto) 7.90 H Lymph # (Auto) 3.60 H [place] # (Auto) 0.70 Eos # (Auto) 0.00 Baso # (Auto) 0.00 Abs Immat Gran (auto) 0.10 Imm/Tot Granulo (auto) 1.2 VBG pH 7.431 H VBG pCO2 49 VBG pO2 56.4 H VBG HCO3 33 H Sodium 138 Potassium 4.2 Chloride 99 Carbon Dioxide 32 Anion Gap 7 BUN 29 Creatinine 1.2 Estimated Creat Clear 45.13 Estimated GFR 60 Glucose 133 H Calcium 9.2 Discharge Plan Discharge Disposition: Home, Self-Care Date of Admission: 08/10/23 14:58 Attending Provider on Discharge: Rhoda Villalta Primary Care Provider: Leela Chu Condition: Stable Anticipated Discharge Date/Time: 08/13/23 08:56 Discharge Medications: Continued sildenafil 100 mg tablet 100 mg PO .As Needed PRN Rx Instructions: TAKE 1 TAB 1 HR PRIOR TO INTERCOURSE aspirin 325 mg tablet 325 mg PO DAILY pramipexole 0.5 mg tablet 0.5 mg PO QHS Qty: 90 3RF omeprazole magnesium [Prilosec OTC] 20 mg tablet,delayed release (DR/EC) 20 mg PO DAILY metoprolol tartrate 50 mg tablet 50 mg PO BID Qty: 180 3RF tamsulosin 0.4 mg capsule 0.4 mg PO QHS Qty: 90 3RF albuterol sulfate 2.5 mg /3 mL (0.083 %) solution for nebulization 2.5 mg inhalation Q4-6H PRN (Reason: shortness of breath or wheezing) Qty: 75 0RF prednisone 20 mg tablet 40 mg PO DAILY Rx Instructions: DAILY FOR 5 DAYS, LAST DOSE 08/12/23 amlodipine 5 mg tablet 5 mg PO DAILY losartan 25 mg tablet 25 mg PO DAILY amoxicillin 500 mg capsule 2,000 mg PO ONCE PRN (Reason: dental) Qty: 16 1RF Rx Instructions: 1 hour prior to dental procedure Discharge Orders: Discharge Order (Routine); Ordered 08/13/23 Ordered By: Rhoda Villalta Additional Instructions: Finish your course of PREDNISONE that you received at Urgent Care and keep using your nebulizer as needed. You don't need any new prescriptions upon discharge. Take it easy for the rest of the week. If your symptoms worsen or anything changes, you need to come back to ER. Activity Level: No strenuous activity Discharge Diet: Regular Follow Up Appointments: Leela Chu MD [Primary Care Provider] - (hospital f/u appointment the week of 08/18 please) Forms: Border[employer] Info Instructions
--- NOTE | 2023-08-13 11:02 | PC.NURSE ---
Discharge: Patient pleasant and cooperative. Patient vitally stable, lungs Rhonci with expiratory wheezes, BS WNL, IV removed, catheter intact. Patient denies pain. Patient tolerating regular diet and urinating. Patient SBA. Patient signed belonging sheet and discharge form. Patient had no further questions regarding discharge. Patient left the floor by wheelchair to home at 1048, with .
== END 2023-08-13 10:48 | disposition home or self-care (01) | DRG 202 ==
LOC: ED 12:15 → MEDSURG 12:26
PROVIDERS: Family Medicine; Admitting Provider Family Medicine; Emergency Provider Family Medicine; PCP Family Medicine; Visit Provider Family Medicine
DX: J20.5 Acute bronchitis due to respiratory syncytial virus (principal); J44.1 Chronic obstructive pulmonary disease with (acute) exacerbation; R09.02 Hypoxemia; R06.02 Shortness of breath; R06.2 Wheezing; Z87.891 Personal history of nicotine dependence; R73.9 Hyperglycemia, unspecified; N40.1 Benign prostatic hyperplasia with lower urinary tract symptoms; R35.1 Nocturia; I25.10 Atherosclerotic heart disease of native coronary artery without angina pectoris; N18.30 Chronic kidney disease, stage 3 unspecified; Z86.73 Personal history of transient ischemic attack (TIA), and cerebral infarction without residual deficits; D64.9 Anemia, unspecified; I12.9 Hypertensive chronic kidney disease with stage 1 through stage 4 chronic kidney disease, or unspecified chronic kidney disease
CPT/HCPCS: 36415; 71045; 71046; 80048; 82803; 83036; 83605; 83880; 84484; 85025; 87631; 93005; 94640; 94761; 97110; 97116; 97161; 97165; 97530; 97535; 99284; 99285; A9270; J1650; J7512

== ENCOUNTER 2023-08-26 15:57 | Outpatient (CLI) | payer MEDICARE, BC, SELFPAY | END 2023-08-26 15:58 | disposition home or self-care (01) | LOC: LKVREF 15:58 | PROVIDERS: PCP Family Medicine; Visit Provider Nurse Practitioner | DX: R06.02 Shortness of breath (principal); R60.0 Localized edema | CPT/HCPCS: 83880 ==

== ENCOUNTER 2023-09-05 13:45 | Outpatient (CLI) | payer MEDICARE, BC, SELFPAY | END 2023-09-05 13:46 | disposition home or self-care (01) | LOC: FRMREF 13:46 | PROVIDERS: PCP Family Medicine; Visit Provider Family Medicine | DX: R60.0 Localized edema (principal) | CPT/HCPCS: 83880 ==

== ENCOUNTER 2023-09-11 15:32 | Outpatient (CLI) | payer MEDICARE, BC, SELFPAY | END 2023-09-11 15:33 | disposition home or self-care (01) | LOC: FRMREF 15:33 | PROVIDERS: PCP Family Medicine; Visit Provider Family Medicine | DX: I10 Essential (primary) hypertension (principal); E78.5 Hyperlipidemia, unspecified | CPT/HCPCS: 80048 ==

== ENCOUNTER 2023-09-25 09:57 | Outpatient (CLI) | payer MEDICARE, BC, SELFPAY | END 2023-09-25 09:58 | disposition home or self-care (01) | PROVIDERS: PCP Family Medicine; Visit Provider Family Medicine | DX: I10 Essential (primary) hypertension (principal); E78.5 Hyperlipidemia, unspecified; R35.0 Frequency of micturition; M10.9 Gout, unspecified; E11.9 Type 2 diabetes mellitus without complications; N18.9 Chronic kidney disease, unspecified; Z13.1 Encounter for screening for diabetes mellitus; Z11.59 Encounter for screening for other viral diseases | CPT/HCPCS: 80053; 82043; 82570; 84156; 86803; G0103 ==

== ENCOUNTER 2023-10-09 12:36 | Outpatient (CLI) | payer MEDICARE, BC, SELFPAY ==
--- OUTSIDE RECORDS SUMMARY | 2023-10-09 12:38 | XMS_ITS ---
Author Name Unknown Organization [facility] [place] [facility] Address [address] [place] [address] Care Team Providers Care Print Traffic Manager Name Role Phone Unavailable Unavailable Unavailable Surgery Details Not on file Complications Check Surgery Details section. Procedure Estimated Blood Loss Check Surgery Details section. Procedure Findings Check Surgery Details section. Procedure Specimens Taken Check Surgery Details section.
--- OUTSIDE RECORDS SUMMARY | 2023-10-09 12:38 | XMS_ITS | Clinical Summary ---
Author Name Unknown Organization [facility] Address [place], [place] [address] Care Team Providers Care Periodicals Library Assistant Name Role Phone Mary Nova Calvin BHAKTI Primary Care Provider [phone]- [phone] Medications Medication Sig Dispensed Refills Start Date End Date Status ADVIL 200 MG ORAL TAB as needed ? 0 09/22/1998 Active ZANTAC 150 MG ORAL TAB 1 BID until gone 30 2 11/12/2000 Active (u) TRIAMTERENE-HCTZ TABS 75-50 MG one qd 100 1 12/03/2000 Active IBUPROFEN 800 MG ORAL TAB 1 TID until gone 30 3 08/19/2001 Active (u) PHENERGEN WITH CODEINE 4 oz 0 08/19/2001 Active VIAGRA 50 MG ORAL TAB as directed 3 3 11/10/2001 Active Active Problems Problem Noted Date Diagnosed Date PAIN IN JOINT, UNSPECIFIED SITE 08/19/2001 PAIN, ABDOMINAL, EPIGASTRIC 11/12/2000 Social History Tobacco Use Types Packs/Day Years Used Date Smoking Tobacco: Every Day Cigarettes Sex and Gender Information Value Date Recorded Sex Assigned at Not on file Gender Identity Not on file Sexual Orientation Not on file Obstetrics History Last Filed Vital Signs Vital Sign Reading Time Taken Comments Blood Pressure 130/70 10/26/2001 12:00 AM BLENDING LINE ATTENDANT Pulse 80 11/12/2000 12:00 AM BLENDING LINE ATTENDANT Temperature 36.2 ??C (97.2 ??F) 10/26/2001 12:[address] Respiratory Rate - - Oxygen Saturation - - Inhaled Oxygen Concentration - - Weight 105.2 kg (232 lb) 10/26/2001 12:00 AM BLENDING LINE ATTENDANT Height - - Body Mass Index - - Plan of Treatment Health Maintenance Due Date Last Done Comments COVID-19 vaccine series (#1) 1940 Tdap 1951 Depression screening for age 12+ 1952 BMI (ht and wt on same day) for age 18+ 1958 Tetanus booster 1960 Zoster (shingles) series for age 50+ (1 of 2) 06/26/19 90 Pneumococcal series for age 65+ (1 of 1 - PCV) 005 Influenza for age 65+ 05/23/2023 Care Teams Periodicals Library Assistant Relationship Specialty Start Date End Date Nova Hernandez PA-C PCP - General Physician Library Specialist 10/10/15
--- OUTSIDE RECORDS SUMMARY | 2023-10-09 12:38 | XMS_ITS | Encounter Summary ---
Author Name Unknown Organization [facility] Address [address] [place] [address] Care Team Providers Care Program Administrator Name Role Phone None Reported, Pcp Primary Care Provider Unavail able Reason for Visit * Reason Onset Date Comments Nicotine Dependence 01/23/2023 Encounter Details Date Type Department Care Team (Latest Contact Info) Description 01/23/2023 Clinical Communication Department of Nicotine Dependence, [facility], in [place], [place] [address] [place] [address] Sugey Olguin M.S., C.T.T.S. [address] [place] [address] Nicotine Dependence Social History Tobacco Use Types Packs/Day Years Used Date Smoking Tobacco: Former Cigarettes Smokeless Tobacco: Current Chew Comments:1/2 to 3/4 tin per day Alcohol Use Standard Drinks/Week Comments Yes 0 (1 standard drink = 0.6 oz pur e alcohol) Glass of dre a night PHQ-2 Answer Date Recorded PHQ-2 Score 2 07/15/2022 PRAPARE - Transportation Answer Date Re corded In the past 12 months, has l ack of transportation kept you from medical appointments or from getting medications? No 06/23 In the past 12 months, has l ack of transportation kept you from meetings, work, or from getting things needed for daily living? No 07/17/2022 Depression Answer Date Recor ded PHQ-9 Total Score (max 27) 8 07/15 Nutrition Answer Date Recorded Nutrition: EVOO Fat Source Unknown 07/09 Nutrition: Servings of Fruits/Vegetables per Day Not on file 07/09/2022 Dental Answer Date Recorded Dental: Regular Dentist Unknown 10/18/20 22 Sex and Gender Information Value Date Recorded Sex Assigned at Male 09/03/2022 12:46 PM TAPPER HELPER Gender Identity Male 09/03/2022 12:46 PM TAPPER HELPER Sexual Orientation Straight 09/03/2022 12 :46 PM TAPPER HELPER documented as of this encounter Plan of Treatment Not on file documented as of this encounter Visit Diagnoses Not on filedocumented in this encounter Additional Health Concerns Assessment Noted Time PHQ-9 Depression Total Score: 8 07/15/20 22 10:42 AM CDT documented as of this encounter Care Teams Program Administrator Relationship Specialty Start Date End Date None Reported, Pcp PCP - General Family Medicine 07/09/22 documented as of this encounter
--- OUTSIDE RECORDS SUMMARY | 2023-10-09 12:38 | XMS_ITS | Clinical Summary ---
Author Name Unknown Organization [facility] Address [address] [place] [address] Care Team Providers Care Zinc Etcher Name Role Phone None Reported, Pcp Primary Care Provider Unavail able Source Comments Patient records contain information from all sites at [facility]. For routine questions regarding patient records, call [phone] during business hours, M-F 8:00 AM - 5:00 PM Central Time. Record requests for emergency care only can be directed to [phone] at any time.[facility] Allergies No known active allergies Medications Medication Sig Dispensed Refills Start Date End Date Status amLODIPine (NORVASC) 5 mg tablet Take 5 mg by mouth daily. 0 Active hydroCHLOROthiazid e (HYDRODIURIL) 25 mg tablet Take 25 mg by mouth daily. 0 Active metoprolol tartrate (LOPRESSOR) 50 mg tablet Take 1 tablet (50 mg total) by mouth 2 (two) times a day. 60 tablet 11 07/17/2022 Active pravastatin (PRAVACHOL) 40 mg tablet Take 1 tablet (40 mg total) by mouth daily. Do not start until 08/12/22, when you are finished with the Atorvastatin prescription 30 tablet 0 08/12/2022 Active omeprazole (PriLOSEC OTC) [address] tablet Take 1 tablet (20 mg total) by mouth every morning before breakfast. DO NOT START TAKING THIS MEDICATION UNTIL YOU ARE DONE TAKING CLOPIDOGREL (PLAVIX) THEY INTERACT WITH ONE ANOTHER. Take 1/2 tablet (10mg) by mouth every morning before breakfast 30 tablet 11 08/11/2022 Active atorvastatin (LIPITOR) 40 mg tablet Take 1 tablet (40 mg total) by mouth daily. Stop this medication after 30 days and switch back to Pravastatin you were taking before 30 tablet 0 07/17/2022 Active aspirin 325 mg tablet Take 1 tablet (325 mg total) by mouth daily. 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 Cereb rovascular Accident Affecting Dominant Side Left 07/12/2022 Obesity Body Mass Index 30-39.9 Adult 07/12/2022 Pain Low Back Chronic 07/12/2022 Stroke 07/09/2022 Family History Medical History Relation Name Comments Cataracts Sister Relation Name Status Comments Sister Social History Tobacco Use Types Packs/Day Years Used Date Smoking Tobacco: Former Cigarettes Smokeless Tobacco: Current Chew Tobacco Cessation:Ready to Q uit: Not Asked; Counseling Given: Yes Comments:1/2 to 3/4 tin per day Alcohol [...] Answer Date Recorded Dental: Regular Dentist Unknown 07/09/20 Sex and Gender Information Value Date Recorded Sex Assigned at Male 09/03/2022 12:46 PM PIANO CASE AND BENCH ASSEMBLER Gender Identity Male 09/03/2022 12:46 PM PIANO CASE AND BENCH ASSEMBLER Sexual Orientation Straight 09/03/2022 12 :46 PM PIANO CASE AND BENCH ASSEMBLER Last Filed Vital Signs Vital Sign Reading Time Taken Comments Blood Pressure 120/69 07/17/2022 12:00 PM CDT Pulse 79 07/17/2022 12:25 PM CDT Temperature 36.4 ??C (97.5 ??F) 07/17/2022 12:25 PM C DT Respiratory Rate 16 07/17/2022 12:25 PM CDT Oxygen Saturation 95% 07/17/2022 12:25 PM CDT Inhaled Oxygen Concentration - - Weight 114 kg (251 lb 15.8 oz) 09/03/2022 1:03 P M PIANO CASE AND BENCH ASSEMBLER Height 177.8 cm (5' 10) 07/12/2022 12:43 PM CDT Body Mass Index 36.16 07/12/2022 12:43 PM CDT Plan of Treatment Health Maintenance Due Date Last Done Comments Office Visit for Blood Press ure Check / Re-check 1940 Visit: Annual, age 65+ (or Medicare and <65) 1940 Visit: Medicare Annual Wellness 1940 Creatinine Level (Kidney Fun ction Test) 07/12/2023 07/12/2022, 07/11/2022, 07/10/2022, Additional history exists Potassium Level 07/12/2023 07/12/2022, 06/23, 07/10/2022, Additional history exists Sodium Level 07/12/2023 07/12/2022, 06/23, 07/10/2022, Additional history exists Depression Screening (Annual PHQ-2) 09/22/2023 Fall Risk Screen (Annual) 09/22/2023 DTaP,Tdap,and Td Vaccines (2 - Td or Tdap) 09/04/2025 09/04/2015 Pneumococcal vaccine (65+ years) Completed 09/04/20, 03/06/2007 Zoster Vaccines Completed 06/10/2023, 12/21, 09/03/2011 COVID-19 Vaccine Completed 10/01/2023, 01/2023, 06/28/2021, Additional history exists Influenza Vaccine Completed 10/01/2023, , 09/18/2021, Additional history exists Medical Devices Implanted Type Area Small Equipment Operator Device Identifier Shelf Expiration Date Model / Serial / Lot Hardware E.G. Pins/Screws/Rods Hardware e.g. pins/screws/ rods Left: Leg Knee Implant Knee Implant Right: Knee Stent Inlay 7fr X 24cm - Sanders [id number] Implanted:Qty: 1 on 07/02/2012 Ureteral Stent C.R.Bard Description:Device Manufactu rer - Bard Patient Care Division. Device Status Text - [id number]. Advance Directives For more information, please contact: [phone] Latest Code Status on File Code Status Date Activated Date Inactivated Comments Full Code 07/12/2022 12:54 PM 07/17/2022 2:47 PM Question Answer Comments Full Code: Discussed Code Status History Code Status Date Activated Date Inactivated Comments Full Code 07/10/2022 1:36 AM 07/12/2022 12:40 PM Question Answer Comments Full Code: Discussed Care Teams Zinc Etcher Relationship Specialty Start Date End Date None Reported, Pcp PCP - General Family Medicine 07/09/22
--- OUTSIDE RECORDS SUMMARY | 2023-10-09 12:38 | XMS_ITS | Referral Summary ---
Author Name Unknown Organization [facility] Address [address] [place] [address] Care Team Providers Care Millinery Copyist Name Role Phone None Reported, Pcp Primary Care Provider Unavail able Source Comments Patient records contain information from all sites at [facility]. For routine questions regarding patient records, call [phone] during business hours, M-F 8:00 AM - 5:00 PM Central Time. Record requests for emergency care only can be directed to [phone] at any time.[facility] Allergies No known active allergies Medications Medication [...] Pain Low Back Chronic 07/12/2022 Stroke 07/09/2022 Social History Tobacco Use Types Packs/Day Years [...] Sex Assigned at Male 09/03/2022 12:46 PM METALLURGY TEACHER Gender Identity Male 09/03/2022 12:46 PM METALLURGY TEACHER Sexual Orientation Straight 09/03/2022 12 :46 PM METALLURGY TEACHER Last Filed Vital Signs Vital Sign Reading Time Taken Comments Blood Pressure 120/69 07/17/2022 12:00 PM CDT Pulse 79 07/17/2022 12:25 PM CDT Temperature 36.4 ??C (97.5 ??F) 07/17/2022 12:25 PM C DT Respiratory Rate 16 07/17/2022 12:25 PM CDT Oxygen Saturation 95% 07/17/2022 12:25 PM CDT Inhaled Oxygen Concentration - - Weight 114 kg (251 lb 15.8 oz) 09/03/2022 1:03 P M METALLURGY TEACHER Height 177.8 cm (5' 10) 07/12/2022 12:43 PM CDT Body Mass Index 36.16 07/12/2022 12:43 PM CDT Plan of Treatment Not on file Medical Devices Implanted Type Area Dietitian Teaching Device Identifier Shelf Expiration Date Model / Serial / Lot Hardware E.G. Pins/Screws/Rods Hardware e.g. pins/screws/ rods Left: Leg Knee Implant Knee Implant Right: Knee Stent Inlay 7fr X 24cm - Sanders [id number] Implanted:Qty: 1 on 07/02/2012 Ureteral Stent C.R.Bard Description:Device Manufactu rer - Bard Patient Care Division. Device Status Text - [id number]. Advance Directives For more information, please contact: [phone] Latest Code Status on File Code Status Date Activated Date Inactivated Comments Full Code 07/12/2022 12:54 PM 07/17/2022 2:47 PM Question Answer Comments Full Code: Discussed Code Status History Code Status Date Activated Date Inactivated Comments Full Code 07/10/2022 1:36 AM 07/12/2022 12:40 PM Question Answer Comments Full Code: Discussed Care Teams Millinery Copyist Relationship Specialty Start Date End Date None Reported, Pcp PCP - General Family Medicine 07/09/22
== END 2023-10-09 12:37 | disposition home or self-care (01) ==
LOC: RAD 12:37
PROVIDERS: PCP Family Medicine; Visit Provider Family Medicine
DX: R60.0 Localized edema (principal); Z95.1 Presence of aortocoronary bypass graft
CPT/HCPCS: 93306

== ENCOUNTER 2023-11-05 12:33 | Outpatient (CLI) | payer MEDICARE, BC, SELFPAY ==
--- OUTSIDE RECORDS SUMMARY | 2023-11-05 12:36 | XMS_ITS | Encounter Summary ---
Author Name Unknown Organization [facility] Address [address] [place] [address] Care Team Providers Care Psychological Tests Sales Agent Name Role Phone None Reported, Pcp Primary Care Provider Unavail able Reason for Visit * Reason Onset Date Comments Nicotine Dependence 01/23/2023 Encounter Details Date Type Department Care Team (Latest Contact Info) Description 01/23/2023 Clinical Communication Department of Nicotine Dependence, [facility], in [place], [place] [address] [place] [address] Sugey Olguin M.S., L.A.D.C., L.P.C.C. [address] [place] [address] Nicotine Dependence Social History Tobacco Use Types [...] Sex Assigned at Male 09/03/2022 12:46 PM POCKETS AND PIECES NECKTIE OPERATOR Gender Identity Male 09/03/2022 12:46 PM POCKETS AND PIECES NECKTIE OPERATOR Sexual Orientation Straight 09/03/2022 12 :46 PM POCKETS AND PIECES NECKTIE OPERATOR documented as of this encounter Plan of Treatment Not on file documented as of this encounter Visit Diagnoses Not on filedocumented in this encounter Additional Health Concerns Assessment Noted Time PHQ-9 Depression Total Score: 8 07/15/20 10:42 AM CDT documented as of this encounter Care Teams Psychological Tests Sales Agent Relationship Specialty Start Date End Date None Reported, Pcp PCP - General Family Medicine 07/09/22 documented as of this encounter
--- OUTSIDE RECORDS SUMMARY | 2023-11-05 12:36 | XMS_ITS | Referral Summary ---
Author Name Unknown Organization [facility] Address [address] [place] [address] Care Team Providers Care Fish Hatchery Manager Name Role Phone None Reported, Pcp Primary Care Provider Unavail able Source Comments Patient records contain information from all sites at [facility]. For routine questions regarding patient records, call [phone] during business hours, M-F 8:00 AM - 5:00 PM Central Time. Record requests for emergency care only can be directed to [phone] at any time.[facility] Allergies No known active allergies Medications [...] Sex Assigned at Male 09/03/2022 12:46 PM EXHIBITION CARVER Gender Identity Male 09/03/2022 12:46 PM EXHIBITION CARVER Sexual Orientation Straight 09/03/2022 12 :46 PM EXHIBITION CARVER Last Filed Vital Signs Vital Sign Reading Time Taken Comments Blood Pressure 120/69 07/17/2022 12:00 PM CDT Pulse 79 07/17/2022 12:25 PM CDT Temperature 36.4 ??C (97.5 ??F) 07/17/2022 12:25 PM C DT Respiratory Rate 16 07/17/2022 12:25 PM CDT Oxygen Saturation 95% 07/17/2022 12:25 PM CDT Inhaled Oxygen Concentration - - Weight 114 kg (251 lb 15.8 oz) 09/03/2022 1:03 P M EXHIBITION CARVER Height 177.8 cm (5' 10) 07/12/2022 12:43 PM CDT Body Mass Index 36.16 07/12/2022 12:43 PM CDT Plan of Treatment Not on file Medical Devices Implanted Type Area Order Checker Device Identifier Shelf Expiration Date Model / Serial / Lot Hardware E.G. Pins/Screws/Rods Hardware e.g. pins/screws/ rods Left: Leg Knee Implant Knee Implant Right: Knee Stent Inlay 7fr X 24cm - Sanders [id number] Implanted:Qty: 1 on 07/02/2012 Ureteral Stent C.R.Bard Description:Device Manufactu rer - Bard Patient Care Division. Device Status Text - [id number]. Advance Directives For more information, please contact: [phone] Latest Code Status on File Code Status Date Activated Date Inactivated Comments Full Code 07/12/2022 12:54 PM 07/17/2022 2:47 PM Question Answer Comments Full Code: Discussed Code Status History Code Status Date Activated Date Inactivated Comments Full Code 07/10/2022 1:36 AM 07/12/2022 12:40 PM Question Answer Comments Full Code: Discussed Care Teams Fish Hatchery Manager Relationship Specialty Start Date End Date None Reported, Pcp PCP - General Family Medicine 07/09/22
--- OUTSIDE RECORDS SUMMARY | 2023-11-05 12:36 | XMS_ITS | Clinical Summary ---
Author Name Unknown Organization [employer] [facility] Address [place], [place] [address] Care Team Providers Care Receiving Associate Name Role Phone Zully Snell MD Primary Care Provider [phone] Medications Medication Sig Dispensed Refills Start Date [...] UNSPECIFIED SITE 08/19/2001 PAIN, ABDOMINAL, EPIGASTRIC 11/12/2000 Encounters Date Type Department Care Team Description 10/09/2023 3:00 PM DIRECTOR OF PUBLICATIONS Ancillary Procedure [facility] [address] [place] [address] from Last 3 Months Social History Tobacco Use Types Packs/Day Years Used Date Smoking Tobacco: Every Day Cigarettes Sex and Gender Information Value Date Recorded Sex Assigned at Not on file Gender Identity Not on file Sexual Orientation Not on file Obstetrics History Last Filed Vital Signs Vital Sign Reading Time Taken Comments Blood Pressure 130/70 10/26/2001 12:00 AM DIRECTOR OF PUBLICATIONS Pulse 80 11/12/2000 12:00 AM DIRECTOR OF PUBLICATIONS Temperature 36.2 ??C (97.2 ??F) 10/26/2001 12:[address] Respiratory Rate - - Oxygen Saturation - - Inhaled Oxygen Concentration - - Weight 105.2 kg (232 lb) 10/26/2001 12:00 AM DIRECTOR OF PUBLICATIONS Height - - Body Mass Index - [...] PCV) 005 Influenza for age 65+ 05/23/2023 Procedures Procedure Name Priority Date/Time Associated Diagnosis Comments ECHO TTE COMPLETE WO CONTRAST Routine 10/09/2023 3:12 PM DIRECTOR OF PUBLICATIONS Localized edema from Last 3 Months Results * ECHO TTE COMPLETE WO CONTRAST (10/09/2023 3:12 PM DIRECTOR OF PUBLICATIONS) AORTIC VALVE MEAN PG 9 mmHg EJECTION FRACTION 52 % LVEDD 5.4 cm EJECTION FRACTION 55 - 60% Anatomical Region Laterality Modality Ultrasound 10/09/2023 2:41 PM DIRECTOR OF PUBLICATIONS Narrative 10/09/2023 3:30 PM DIRECTOR OF PUBLICATIONS ECHOCARDIOGRAM RENE BROWN ? Accession#: ?? [id number] : ?1940 83 years Study Date: ?? 10/09/2023 2:41:19 PM Gender: M ?BP: ? 170/81 mmHg Height: 173.00 cm ?BSA: ?2.25 m? ? ? Weight: 114.00 kg ?Tech: ? MJS ? Referring MD: ZULLY SNELL Site: ? [facility] Reading Location: MOBILE OP Patient Location: Outpatient. Procedure: 2D, Color Doppler and Spectral Doppler. Indication for study: EDEMA/ CABG X2 Cardiac Rhythm: Normal sinus.Study quality: Fair. Imaging limitations: This study was subject to imaging limitations due to body habitus and a prominent lung artifact. Final Impressions: 1. Normal LV size, normal wall thickness, normal global systolic function with an estimated EF of 55 - 60%. 2. Right ventricular cavity size is normal, global systolic RV function is normal. 3. The aortic valve is trileaflet and sclerotic, no stenosis and no regurgitation. 4. No significant functional valve disease detected. Comparison Compared to prior exam of 06/13/15, there has been no significant change. Chamber Sizes and Function Normal left ventricular size, normal wall thickness, normal global systolic function with an estimated EF of 55 - 60%. Left atrial size is normal. Right ventricular cavity size is normal, global systolic RV function is normal. The right atrium is mildly enlarged. Right atrial area is 19 cm? ? ?. The pulmonary artery is of normal size and origin. The sinus of Valsalva is normal sized. The ascending aorta is normal sized. Valves, RV Pressures and Diastolic Function The aortic valve is trileaflet and sclerotic, no stenosis and no regurgitation. The mitral valve is normal in structure, trace mitral regurgitation. Normal diastolic function. The tricuspid valve is normal in structure. Tricuspid regurgitation is regurgitation is not evident. The pulmonic valve is normal. No pulmonary regurgitation. TTE images do not appear adequate for transcather intervention with patient supine. Masses, Effusion, Shunts There is no pericardial effusion. The inferior vena cava is not well visualized, respiratory size variation not well visualized. No left to right shunting was detected by limited color flow Doppler interrogation of the interatrial septum. MEASUREMENTS AND CALCULATIONS 2-D Measurements and LV Function: LVID (d) 5.4 cm LV FS% (2D) ?? 38 % LVID (s) 3.4 cm LVOT diameter 2.3 cm IVS (d) ??1.1 cm HR ?82 bpm LVPW (d) 1.2 cm LA Vol index ??30 ml/m2 Ao Sinus 3.5 cm RA area ? 19 cm? ? ? Asc Ao ?? 3.2 cm RV Max 4C (d) 4.1 cm Diastology: Mitral ?Tissue Doppler E Peak 0.9 m/s ??e', Septum ? 0.09 m/s A Peak 1.2 m/s ??e', Lateral ?0.13 m/s E/A ?0.7 ?E/e' Average ?? 8.42 DT ? 243 msec Aortic Valve: Vmax ? 2.0 m/s ??FREIDA (V) ?? 1.95 cm? ? ? VTI ?0.48 m ?? FREIDA (I) ?? 2.05 cm? ? ? LVOT V max 1.0 m/s ??Max PG ?16 mmHg LVOT VTI ?? 0.24 m ?? Mean PG ?? 9 mmHg SV ? 99 ml ?Dim Index 0.50 SV index ?? 44 ml/m? ? ? CO ?8.1 l/min ?CI ?3.6 l/min/m? ? ? Mitral Valve: MVA ?3.1 cm? ? ? MV P 1/2 70 msec Tricuspid Valve and estimated PA pressures: TAPSE 2.0 cm . This study was interpreted by an [facility] accredited facility. CC: [facility] ([facility]) [facility]. ??Final ?? Procedure Note Judson Villa MD - 10/09/2023 ECHOCARDIOGRAM RENE BROWN : 1940 83 years Study Date: 10/09/2023 2:41:19 PM Gender: M BP: 170/81 mmHg Height: 173.00 cm BSA: 2.25 m? ? ? Weight: 114.00 kg Tech: UNIQUE Referring MD: ZULLY SNELL Site: [facility] Reading Location: MOBILE OP Patient Location: Outpatient. Procedure: 2D, Color Doppler and Spectral Doppler. Indication for study: EDEMA/ CABG X2 Cardiac Rhythm: Normal sinus.Study quality: Fair. Imaging limitations: This study was subject to imaging limitations due tobody habitus and a prominent lung artifact. Final Impressions: 1. Normal LV size, normal wall thickness, normal global systolic functionwith an estimated EF of 55 - 60%. 2. Right ventricular cavity size is normal, global systolic RV functionis normal. 3. The aortic valve is trileaflet and sclerotic, no stenosis and noregurgitation. 4. No significant functional valve disease detected. Comparison Compared to prior exam of 06/13/15, there has been no significant change. Chamber Sizes and Function Normal left ventricular size, normal wall thickness, normal globalsystolic function with an estimated EF of 55 - 60%. Left atrial size isnormal. Right ventricular cavity size is normal, global systolic RVfunction is normal. The right atrium is mildly enlarged. Right atrial areais 19 cm? ? ?. The pulmonary artery is of normal size and origin. The sinusof Valsalva is normal sized. The ascending aorta is normal sized. Valves, RV Pressures and Diastolic Function The aortic valve is trileaflet and sclerotic, no stenosis and noregurgitation. The mitral valve is normal in structure, trace mitralregurgitation. Normal diastolic function. The tricuspid valve is normal instructure. Tricuspid regurgitation is regurgitation is not evident. Thepulmonic valve is normal. No pulmonary regurgitation. TTE images do notappear adequate for transcather intervention with patient supine. Masses, Effusion, Shunts There is no pericardial effusion. The inferior vena cava is not wellvisualized, respiratory size variation not well visualized. No left toright shunting was detected by limited color flow Doppler interrogation ofthe interatrial septum. MEASUREMENTS AND CALCULATIONS 2-D Measurements and LV Function: LVID (d) 5.4 cm LV FS% (2D) 38 % LVID (s) 3.4 cm LVOT diameter 2.3 cm IVS (d) 1.1 cm HR 82 bpm LVPW (d) 1.2 cm LA Vol index 30 ml/m2 Ao Sinus 3.5 cm RA area 19 cm? ? ? Asc Ao 3.2 cm RV Max 4C (d) 4.1 cm Diastology: Mitral Tissue Doppler E Peak 0.9 m/s e', Septum 0.09 m/s A Peak 1.2 m/s e', Lateral 0.13 m/s E/A 0.7 E/e' Average 8.42 DT 243 msec Aortic Valve: Vmax 2.0 m/s FREIDA (V) 1.95 cm? ? ? VTI 0.48 m FREIDA (I) 2.05 cm? ? ? LVOT V max 1.0 m/s Max PG 16 mmHg LVOT VTI 0.24 m Mean PG 9 mmHg SV 99 ml Dim Index 0.50 SV index 44 ml/m? ? ? CO 8.1 l/min CI 3.6 l/min/m? ? ? Mitral Valve: MVA 3.1 cm? ? ? MV P 1/2 70 msec Tricuspid Valve and estimated PA pressures: TAPSE 2.0 cm . This study was interpreted by an [facility] accredited facility. CC: [facility] ([facility]) [facility]. Final Zully Snell MD ECHO ORD from Last 3 Months Care Teams Receiving Associate Relationship Specialty Start Date End Date Zully Snell MD [id number] [place] [id number] PCP - General 10/09/23
--- OUTSIDE RECORDS SUMMARY | 2023-11-05 12:36 | XMS_ITS | Clinical Summary ---
Author Name Unknown Organization [facility] Address [address] [place] [address] Care Team Providers Care Passenger Relations Representative Name Role Phone None Reported, Pcp Primary Care Provider Unavail able Source Comments Patient records contain information from all sites at [facility]. For routine questions regarding patient records, call [phone] during business hours, M-F 8:00 AM - 5:00 PM Central Time. Record requests for emergency care only can be directed to [phone] at any time.[facility] Allergies No known active allergies Medications [...] Sex Assigned at Male 09/03/2022 12:46 PM CIRCUS HAND Gender Identity Male 09/03/2022 12:46 PM CIRCUS HAND Sexual Orientation Straight 09/03/2022 12 :46 PM CIRCUS HAND Last Filed Vital Signs Vital Sign Reading Time Taken Comments Blood Pressure 120/69 07/17/2022 12:00 PM CDT Pulse 79 07/17/2022 12:25 PM CDT Temperature 36.4 ??C (97.5 ??F) 07/17/2022 12:25 PM C DT Respiratory Rate 16 07/17/2022 12:25 PM CDT Oxygen Saturation 95% 07/17/2022 12:25 PM CDT Inhaled Oxygen Concentration - - Weight 114 kg (251 lb 15.8 oz) 09/03/2022 1:03 P M CIRCUS HAND Height 177.8 cm (5' 10) 07/12/2022 12:43 [...] history exists Medical Devices Implanted Type Area Tube Dispatcher Device Identifier Shelf Expiration Date Model / Serial / Lot Hardware E.G. Pins/Screws/Rods Hardware e.g. pins/screws/ rods Left: Leg Knee Implant Knee Implant Right: Knee Stent Inlay 7fr X 24cm - Sanders [id number] Implanted:Qty: 1 on 07/02/2012 Ureteral Stent C.[employer].Bard Description:Device Manufactu rer - [employer] Patient Care Division. Device Status Text - [id number]. Advance Directives For more information, please contact: [phone] Latest Code Status on File Code Status Date Activated Date Inactivated Comments Full Code 07/12/2022 12:54 PM 07/17/2022 2:47 PM Question Answer Comments Full Code: Discussed Code Status History Code Status Date Activated Date Inactivated Comments Full Code 07/10/2022 1:36 AM 07/12/2022 12:40 PM Question Answer Comments Full Code: Discussed Care Teams Passenger Relations Representative Relationship Specialty Start Date End Date None Reported, Pcp PCP - General Family Medicine 07/09/22
--- OUTSIDE RECORDS SUMMARY | 2023-11-05 12:36 | XMS_ITS ---
Author Name Unknown Organization [facility] Address [address] [place] [address] Care Team Providers Care Medical Doctor Md Name Role Phone Unavailable Unavailable Unavailable Surgery Details Not on file Complications Check Surgery Details section. Procedure Estimated Blood Loss Check Surgery Details section. Procedure Findings Check Surgery Details section. Procedure Specimens Taken Check Surgery Details section.
== END 2023-11-05 12:34 | disposition home or self-care (01) ==
LOC: WOUND 12:34
PROVIDERS: PCP Family Medicine; Visit Provider Surgery
DX: S31.104A Unspecified open wound of abdominal wall, left lower quadrant without penetration into peritoneal cavity, initial encounter (principal); E11.9 Type 2 diabetes mellitus without complications; E66.09 Other obesity due to excess calories
CPT/HCPCS: G0463

== ENCOUNTER 2023-11-17 09:32 | Outpatient (CLI) | payer MEDICARE, BC, SELFPAY | END 2023-11-17 09:33 | disposition home or self-care (01) | PROVIDERS: PCP Family Medicine; Visit Provider Family Medicine | DX: I10 Essential (primary) hypertension (principal); R06.02 Shortness of breath; R63.5 Abnormal weight gain | CPT/HCPCS: 80053; 83880 ==

== ENCOUNTER 2023-11-19 12:53 | Outpatient (CLI) | payer MEDICARE, BC, SELFPAY | END 2023-11-19 12:54 | disposition home or self-care (01) | LOC: WOUND 12:53 | PROVIDERS: PCP Family Medicine; Visit Provider Surgery | DX: L89.892 Pressure ulcer of other site, stage 2 (principal) | CPT/HCPCS: 97602 ==

== ENCOUNTER 2023-12-03 12:35 | Outpatient (CLI) | payer MEDICARE, BC, SELFPAY | END 2023-12-03 12:36 | disposition home or self-care (01) | LOC: WOUND 12:36 | PROVIDERS: PCP Family Medicine; Visit Provider Family Medicine | DX: S31.104A Unspecified open wound of abdominal wall, left lower quadrant without penetration into peritoneal cavity, initial encounter (principal); E66.09 Other obesity due to excess calories; Z68.37 Body mass index [BMI] 37.0-37.9, adult | CPT/HCPCS: G0463 ==

== ENCOUNTER 2023-12-17 12:37 | Outpatient (CLI) | payer MEDICARE, BC, SELFPAY | END 2023-12-17 12:38 | disposition home or self-care (01) | LOC: WOUND 12:37 | PROVIDERS: PCP Family Medicine; Visit Provider Surgery | DX: S31.104D Unspecified open wound of abdominal wall, left lower quadrant without penetration into peritoneal cavity, subsequent encounter (principal); E66.09 Other obesity due to excess calories; Z68.37 Body mass index [BMI] 37.0-37.9, adult | CPT/HCPCS: G0463 ==

== ENCOUNTER 2024-03-08 09:30 | Outpatient (RCR) | payer MEDICARE, BC, SELFPAY ==
--- NOTE | 2024-01-26 13:39 | OT.OPLE2 ---
OT Outpatient Lymphedema Eval* OT Outpatient Lymphedema Eval* Start: 01/26/24 11:03 Freq: Status: Active Protocol: Document 01/26/24 11:27 RADHAN (Rec: 01/26/24 12:52 LCN [id number]) E-signed By Eva Mayen, OTR/L, CLT OT Outpatient Evaluation Details Type Type Eval Complexity Low Insurance Information Insurance Information Insurance Information Medicare B Height and Weight Weight Weight 115.108 kg OT OP Lymphedema Evaluation Current Condition/Medical Diagnosis Referring Provider Brigido Lugo Treatment Diagnosis B LE Lymphedema Date Of Onset 09/05/23 Medical Contraindications DM,Heart Condition,HTN, Respiratory,Arthritis,Stroke Medical History Medical History CHF,Obesity,Heart Disease,DM, Renal Disease Medical History Comments B LE lymphedema exacerbation after RSV with likely CHF, known diabetes and chronic kidney disease. Has onset of B LE edema in Sep 05 2023 and was seen in wound care L inguinal wound 3 visits to late November. Has had CT of lumbar spine with 2 herniated discs found. Had cortisone injection, very painful; pt feels it was not helpful. Has had oral pain meds prescribed recently for his R flank/paraspinal back pain, afraid he will get addicted to using them; not using. Not using NSAIDS per his kidney disease. Started oral metaxalone late November 2023, now weighing 253# (was 270 in mid November). 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 COPD. B RTC issues, RLE < OA. GERD. 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 Does well in sitting but walking after getting out is very heard. 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 No pain while sitting) Since his RSV infection 08/08/23, with likely CHF this winter, he had an exacerbation of B LE lymphedema and was was seen initially by the therapist / home health OT for his lymphedema on 12/11/23. SInce then he has been using graduated compression bandaging layers (faom, wraps, Tetragrip) toes to upper thigh with his 's full assist since then (reapplying every two days). Does well with lymph lymph node massage and pumping exercise HEP. Also doing his PT balance and strengthening exercises (Not feeling super helpful for strength, but they are ' getting easier to do' per pt). At end of home health, OTR assisted with ordering the velcro compression wraps for below knees and looked at getting compression shorts for the top and requested further OP OT to help with next steps . He prefers the thigh high Tetragrip instead of compression shorts. In the past 2 weeks, he has down graded to just using the tetragrip SIze G toes to below knee and tetragrip H calf to upper thigh. Legs are less heavy, full. Struggling with walking from low back pain and also the corns on R middle toe and L 4th toe, ongoing gout flares ( unable to take meds for due to kidney issues) . Shoes also have a very narrow toe box, but shoes and socks removed feels so much better. Living Situation Current Living Situation Home With Spouse Or SO Patient Difficulties Difficulties With Any Of The Following Walking,Dressing,Reaching Feet & Toes Patient Difficulties Comments I'm still feeling so tired after the RSV. It's hard to build back up. Impairments Impairments Loss of Mobility,Difficulties With ADLs,Limb Heaviness,Poor Clothing Fit Problem List Problem List Limited Knowledge of Lymphedema Treatment/Condition /Precautions,Limited Knowledge of Skin Care & Infection Precautions,Significant Risk For Infection For Lymphedema Related Complications,Presents With Impaired Mobility/ROM Exercise History Does Patient Exercise Regularly Yes Exercise Comments HEP for PT and OT only, limited standing/walking tolerance to < 5 min Pain Pain Yes Pain Comments R lower back pain 8/10 ROM/Strength ROM/Strength Comments B knee flexion to 100 of 120. Previous Treatment Previous Treatment For Swelling/ Compression Garment,Multi- Lymphedema Layer Compression Bandages, Exercise,Elevation,Self Massage Compression History Does Patient Currently Wear Compression Yes During Daytime Compression During Daytime Comments Current COmpression plan Upgraded today--Instructed in donning/wearing the velcro wraps and liner 15-25 mmHG stockings toes to below knee; and below knee Circaide velcro wrap. Safe for using day, night time 48 hours at a time per good sensation/no open areas. Continue with tetragrip size H knee to upper thigh. Does Patient Currently Wear Compression Yes At Night Compression At Night Comments per above. Can have one night per week skin break overnight with rapid re-wrap the next morning. Current Swelling (Location/Pitting/Texture) Pitting Scale: 0 = No pitting 1+ Tissue returns to normal almost immediately 2+ Tissue returns after 15-30 seconds 3+ Tissue returns after 1-1/2 minutes 4+ Tissue returns after 2-3 minutes N/A Tissue no longer pits due to induration Tissue texture: Soft or indurated Clinical Presentation Area Thighs to feet B. Triggering Event & Start Date of Has had leg edema 1-2+ edema Swelling/Lymphedema for many years, got worse after RSV in October Clinical Presentation Pitting/Texture cool white, ziyad skin with spongy thickness, fixed creases at medial knees, + stemmer's sign, mild squaring of toes. Spider vein reticular varicosities for feet. Non pitting spongy edema at upper thighs, knees 1+ edema shins to malleoli. Skin Changes Toe/Foot Deformities,Fibrosis, Limited Skin Mobility Positive Stemmer's Sign Yes Capillary Refill Brisk Type of Swelling Secondary Staging Staging Stage 2 Circumferential Measurements Lower Extremity Left Lower Extremity Great Toe (in cm) 8.5 MTP (in cm) 24 Arch (in cm) 24 Distance Between MTP's and Arch 4 Circumference Measurement Calcaneus (in cm) 33 Distance Between Arch and Calcaneus 8 Circumference Measurement 10 cm above Calcaneus Measurement 24 20 cm above Calcaneus Measurement 26 30 cm above Calcaneus Measurement 36 40 cm above Calcaneus Measurement 36.5 50 cm above Calcaneus Measurement 43 60 cm above Calcaneus Measurement 47.7 70 cm above Calcaneus Measurement 56.5 Total Girth in cm 359.2 Previous Total Girth in cm 408.2 Difference in Total Girth by cm -49.0 LE Volume A 183 LE Volume B 521 LE Volume C 651 LE Volume D 497 LE Volume E 771 LE Volume F 1045.71 LE Volume G 1260.17 LE Volume H 1638.07 LE Volume I 2165.19 Lower Extremity Volume Total in cm 8,732.14 Previous Lower Extremity Volume Total in 11,560.3 cm Lower Extremity Volume Total Difference -2,828.16 in cm Right Lower Extremity Great Toe (in cm) 8.5 MTP (in cm) 23.5 Arch (in cm) 23 Distance Between MTP's and Arch 4 Circumference Measurement Calcaneus (in cm) 32 Distance Between Arch and Calcaneus 8 Circumference Measurement 10 cm above Calcaneus Measurement 22.7 20 cm above Calcaneus Measurement 25 30 cm above Calcaneus Measurement 35 40 cm above Calcaneus Measurement 35.7 50 cm above Calcaneus Measurement 45.5 60 cm above Calcaneus Measurement 46 70 cm above Calcaneus Measurement 54 Total Girth in cm 350.9 Previous Total Girth in cm 386.4 Difference in Total Girth by cm -35.5 LE Volume A 172.07 LE Volume B 485 LE Volume C 600.99 LE Volume D 453.00 LE Volume E 722 LE Volume F 994.45 LE Volume G 1318.09 LE Volume H 1665.62 LE Volume I 1992 Lower Extremity Volume Total in cm 8,404.22 Previous Lower Extremity Volume Total in 10,250.2 cm Lower Extremity Volume Total Difference -1,845.98 in cm Progress Total Circumferential Difference in cm -84.50 Total Volume Difference in cm -4674.14 Assessment Assessment Pt with Impaired integrity of skin & lymphedema that leads to increased risk of infection & skin breakdown. Pt continues w decreased mobility of BLE d/t bulk of swelling in legs (related to painful corns and low back pain as well) and impaired fit of appropriate footwear. Legs are heavy, hard to feel where feet are, limited standing tolerance, hard to get shoes, socks on. Jose is doing really well with keeping swelling down since being d/c from OT 12/23. He has lost an impressive 1.86 L in R LE and and 2.86 L loss in L LE, since initial home health eval with this OTR 12/11/23. He is now is transitioning to new velcro compression wraps/tetragrip to maintain those gains. Patient Goals Patient Goals To have his swelling stay down and be easier to manage with the velcro wraps, or move to wearing sales engineer layers if possible. [employer] Goals (# of Weeks) 8 Click To Default Nursing Home Goals Standard Goals [employer] Goals Goal: Patient and/or caregiver will be independent with short-stretch compression bandaging for continued volume reduction and prevention of recurrence Goal: Patient will experience increased ROM and mobility in order to improve safety and independence with transfers and mobility Goal: Patient will achieve a continued reduction by 5-10 cm per LE to enable functional improvements such as fitting into standard sized clothing and shoes, return to a prior level of functional mobility, improved balance, and reduced risk of falling. Patient and/or caregiver will be independent with HEP and lymphedema management to reduce risk for edema relapse and to reduce risk for infection Treatment Plan Treatment Plan Evaluation,Edema Control, Manual Therapy,Therapeutic Exercise,Self-Care/Home Management,Caregiver Training Other Treatment Plan Likely 2-4 visits total of OT in the next 60 days Expected Frequency 1x Week Expected Duration 6-8 Weeks Certification Certification Statement I Certify That: Therapy Services Provided, Therapy Plan Established, Therapy Plan Reviewed Certification Information Clinic ID # [id number] Initial Certification Date 01/26/24 Recertification Due Date 04/25/24 Provider Signature Shows Agreement With POC & Medical Necessity Physician Comment/Change Comment or Changes Physician NPI Number #
--- NOTE | 2024-03-08 14:26 | OT.OPLDN2 ---
OT Outpatient Lymphedema Daily Note OT Outpatient Lymphedema Daily Note* Start: 01/26/24 11:03 Freq: Status: Active Protocol: Document 03/08/24 10:06 DEANNE (Rec: 03/08/24 14:25 DEANNE [id number]) E-signed By Eva Mayen, OTR/L, CLT Type of Note Type of Note Type of Note Daily Note,Discharge Note,Note to MD Visit Number 3 Insurance Information Insurance Information Insurance Information Medicare B Height and Weight Weight Weight 115.108 kg OT OP Lymphedema Daily/Progress Note Current Condition/Medical Diagnosis Referring Provider Brigido Lugo Date Of Onset 09/05/23 Medical Contraindications DM,Heart Condition,HTN, Respiratory,Arthritis,Stroke Medical History Medical History CHF,Obesity,Heart Disease,DM, Renal Disease Medical History Comments B LE lymphedema exacerbation after RSV with likely CHF, known diabetes and chronic kidney disease. Has onset of B LE edema in Sep 05 2023 and was seen in wound care L inguinal wound 3 visits to late November. Has had CT of lumbar spine with 2 herniated discs found. Had cortisone injection, very painful; pt feels it was not helpful. Has had oral pain meds prescribed recently for his R flank/paraspinal back pain, afraid he will get addicted to using them; not using. Not using NSAIDS per his kidney disease. Started oral metaxalone late November 2023, now weighing 253# (was 270 in mid November). 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 COPD. B RTC issues, RLE < OA. GERD. 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 Does well in sitting but walking after getting out is very heard. Subjective Subjective Jose has been doing his self MLD massage am and PM, wearing tetragrip G compression liners toes to below knee as primary compression. Has mild thickness at medial thighs with spongy fibrous edema, tender at upper margin. Has pitting 2+ edema at mid tibial shafts to below knee. (No compression before appt, up for 3 hours prior)L inguinal area well healed. PLEASE NOTE--1) Pt has been told to increase potassium with eating more bananas per MD visit 01/30/24. 2)Pt having more L knee pain lately ( newer pain), hoping to see MD and get Rx for managing his L knee OA changes. . 3) Pt's primary hope is to be taken off of the fluid pills now that his lymphedema girth has reduced and is staying consistently down per daily compression wear. Living Situation Current Living Situation Home With Spouse Or SO Patient Difficulties Difficulties With Any Of The Following Walking,Dressing,Reaching Feet & Toes Patient Difficulties Comments I'm still feeling so tired after the RSV. It's hard to build back up. Impairments Impairments Loss of Mobility,Difficulties With ADLs,Limb Heaviness,Poor Clothing Fit Problem List Problem List Limited Knowledge of Lymphedema Treatment/Condition /Precautions,Limited Knowledge of Skin Care & Infection Precautions,Significant Risk For Infection For Lymphedema Related Complications,Presents With Impaired Mobility/ROM Exercise History Does Patient Exercise Regularly Yes Exercise Comments HEP for PT and OT only, limited standing/walking tolerance to < 5 min Pain Pain Yes Pain Comments R lower back pain 8/10 ROM/Strength ROM/Strength Comments B knee flexion to 100 of 120. Previous Treatment Previous Treatment For Swelling/ Compression Garment,Multi- Lymphedema Layer Compression Bandages, Exercise,Elevation,Self Massage Compression History Does Patient Currently Wear Compression Yes During Daytime Compression During Daytime Comments 03/08/24-- Pt consistently using Tetgrip size G toes to below knee and edema is staying stable with this strategy, able to self valorie and self doff. Will use the velcro wraps agin if he has an exacerbation. 02/03/24-- OTR issues information to order 1 set of BLE single layer TG Shape size XL FUll leg 8-15 mmHG compression (graduated open toe to upper thigh) Can use telescoping tetragrip G below knee and size JBK to thigh. Added artiflex padding to tender medial thigh margin. 01/26/24--Current COmpression plan Upgraded today-- Instructed in donning/wearing the velcro wraps and liner 15- 25 mmHG stockings toes to below knee; and below knee Circaide Medium Long velcro wrap. Safe for using day, night time 48 hours at a time per good sensation/no open areas. Continue with tetragrip size H knee to upper thigh. Does Patient Currently Wear Compression Yes At Night Compression At Night Comments per above. Can have one night per week skin break overnight with rapid re-wrap the next morning. Current Swelling (Location/Pitting/Texture) Pitting Scale: 0 = No pitting 1+ Tissue returns to normal almost immediately 2+ Tissue returns after 15-30 seconds 3+ Tissue returns after 1-1/2 minutes 4+ Tissue returns after 2-3 minutes N/A Tissue no longer pits due to induration Tissue texture: Soft or indurated Clinical Presentation Area Thighs to feet B. Triggering Event & Start Date of Has had leg edema 1-2+ edema Swelling/Lymphedema for many years, got worse after RSV in October Clinical Presentation Pitting/Texture cool white, ziyad skin with spongy thickness, fixed creases at medial knees, + stemmer's sign, mild squaring of toes. Spider vein reticular varicosities for feet. Non pitting spongy edema at upper thighs, knees 1+ edema shins to malleoli. Skin Changes Toe/Foot Deformities,Fibrosis, Limited Skin Mobility Positive Stemmer's Sign Yes Capillary Refill Brisk Type of Swelling Secondary Staging Staging Stage 2 Circumferential Measurements Lower Extremity Left Lower Extremity Great Toe (in cm) 8.4 MTP (in cm) 25.3 Arch (in cm) 23.7 Distance Between MTP's and Arch 4 Circumference Measurement Calcaneus (in cm) 33 Distance Between Arch and Calcaneus 8 Circumference Measurement 10 cm above Calcaneus Measurement 25.8 20 cm above Calcaneus Measurement 25 30 cm above Calcaneus Measurement 36.7 40 cm above Calcaneus Measurement 37 50 cm above Calcaneus Measurement 47 60 cm above Calcaneus Measurement 50 70 cm above Calcaneus Measurement 58 Total Girth in cm 369.9 Previous Total Girth in cm 408.2 Difference in Total Girth in cm -38.3 LE Volume A 191.13 LE Volume B 516.25 LE Volume C 691.27 LE Volume D 513.44 LE Volume E 766.43 LE Volume F 1080.60 LE Volume G 1410 LE Volume H 1872 LE Volume I 2324 Lower Extremity Volume Total in cm 9,365.12 Previous Lower Extremity Volume Total in 11,560.3 cm Lower Extremity Volume Total Difference -2,195.18 in cm Right Lower Extremity Great Toe (in cm) 8.4 MTP (in cm) 23.0 Arch (in cm) 23.5 Distance Between MTP's and Arch 4 Circumference Measurement Calcaneus (in cm) 32 Distance Between Arch and Calcaneus 8 Circumference Measurement 10 cm above Calcaneus Measurement 24 20 cm above Calcaneus Measurement 25 30 cm above Calcaneus Measurement 34.6 40 cm above Calcaneus Measurement 36 50 cm above Calcaneus Measurement 45.5 60 cm above Calcaneus Measurement 46 70 cm above Calcaneus Measurement 53 Total Girth in cm 351.0 Previous Total Girth in cm 386.4 Difference in Total Girth in cm -35.4 LE Volume A 172.07 LE Volume B 494.07 LE Volume C 628 LE Volume D 477 LE Volume E 712.79 LE Volume F 991.73 LE Volume G 1327.41 LE Volume H 1665.62 LE Volume I 1953 Lower Extremity Volume Total in cm 8,421.69 Previous Lower Extremity Volume Total in 10,250.2 cm Lower Extremity Volume Total Difference -1,828.51 in cm Treatment Manual Therapy Minutes (minutes) 40 Manual Therapy Comments OTR remeasures. Edema girth is stable (does have more edema if he leaves his tetragrip off in the mornings, but wears it daily with great compliance. OTR issues information to get more Tetragrip size G for use below knee to toes. Has no problems with it rolling up on his foot. OTR completes MLD sequence (as needed for increased tissue mobility, ROM and decreased lymph girth) with LN facilitation at TDL, terminus, suboccipital to SCM lines, with lymph sweeping distal to proximal x 5-7 strokes each plane, with 2-3 sets at congested areas. Cont LN facilitation at abd with diaphragmatic breath, 4 abd quadrants, beltline, lateral trunk and ING > AX?to support watershed flow. Segmental decongestive MLD at lateral hip,?lateral thigh bundles, middle thigh, TFL to lateral trunk and calf in 3 segments, foot and ankle areas with toe web space facilitation, x 10 reps each area. REviewed HEP with LN facilitation, sweeping MLD and pumping ex. No further OT needed at this time . Pt still has his velcro wraps and can return to using them if he has another edema exacerbation. Pt reports comfort with GCB. Total Occupational Therapy Minutes 40 Assessment Assessment Jose is doing really well with keeping swelling down since being d/c from OT 12/23. He has lost an impressive 1.86 L in R LE and and 2.86 L loss in L LE, since initial home health eval with this OTR 12/11/23. These losses are stable and being maintained well with the use of below knee compression and lymph node massage HEP 2x/day. 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 Short Term Goals (GOAL MET) [facility] Goals (# of Weeks) 8 [facility] Goals Goal: Patient and/or caregiver will be independent with short-stretch compression bandaging for continued volume reduction and prevention of recurrence 03/08/24 GOAL UPDATE--Self donns compression GOAL MET. Goal: Patient will experience increased ROM and mobility in order to improve safety and independence with transfers and mobility Goal: Patient will be independent with donning and doffing of compression garments which will enable regular daily garment wear 03/08/24 GOAL UPDATE--GOAL MET. Goal: Patient will achieve a specific reduction of girth volume of 1000ml/1 L per LE to enable functional improvements such as fitting into standard sized clothing and shoes with return to a prior level of functional mobility, improved balance, and reduced risk of falling. Indicate cm in comments below 03/08/24 GOAL UPDATE-- GOAL MET . 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 Plans to speak with MD at next visit. Goal: Patient and/or caregiver will be independent with HEP and lymphedema management to reduce risk for edema relapse and to reduce risk for infection 03/08/24 GOAL UPDATE-- GOAL MET . Pt performs 2x/day. Treatment Plan Treatment Plan Evaluation,Edema Control, Manual Therapy,Therapeutic Exercise,Self-Care/Home Management,Caregiver Training Other Treatment Plan Likely 2-4 visits total of OT in the next 60 days OT d/c 03/08/24 Expected Frequency 1x Week Expected Duration 6-8 Weeks Occupational Therapy Billing Units Treatment Minutes Timed Treatment Minutes 40 Total Treatment Minutes 40 Billing Units Manual Therapy 3 Certification Statement Certification Statement I Certify That: Therapy Services Provided, Therapy Plan Established, Therapy Plan Reviewed Discharge Note Discharge Note Discharge Summary Per subjective above. 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 No pain while sitting) Since his RSV infection 08/08/23, with likely CHF this winter, he had an exacerbation of B LE lymphedema and was was seen initially by the therapist / home health OT for his lymphedema on 12/11/23. SInce then he has been using graduated compression bandaging layers (faom, wraps, Tetragrip) toes to upper thigh with his 's full assist since then (reapplying every two days). Does well with lymph lymph node massage and pumping exercise HEP. Also doing his PT balance and strengthening exercises (Not feeling super helpful for strength, but they are ' getting easier to do' per pt). At end of home health, OTR assisted with ordering the velcro compression wraps for below knees and looked at getting compression shorts for the top and requested further OP OT to help with next steps . Interventions Provided During Treatment Evaluation,Edema Control, Manual Therapy,Therapeutic Exercise,Self Care/Home Management,Filter Changing Technician Training ,Education Recommendations/Reason for Discharge Met All Therapy Goals,Progress Cont w/HEP
== END 2024-07-06 23:59 | disposition home or self-care (01) ==
PROVIDERS: PCP Family Medicine; Visit Provider Family Medicine
DX: I89.0 Lymphedema, not elsewhere classified (principal); Z51.89 Encounter for other specified aftercare
CPT/HCPCS: 97140; 97165

== ENCOUNTER 2024-04-09 09:15 | Outpatient (CLI) | payer MEDICARE, BC, SELFPAY ==
--- OUTSIDE RECORDS SUMMARY | 2024-04-09 09:21 | XMS_ITS | Clinical Summary ---
Author Organization [facility] Address [place], [place] [address] Care Team Providers Care Radio Station Engineer Name Role Phone Leela Chu MD Primary Care Provider [phone] Medications Medication Sig Dispensed Refills Start Date [...] Comments Blood Pressure 130/70 10/26/2001 12:00 AM MRI TECHNICIAN Pulse 80 11/12/2000 12:00 AM MRI TECHNICIAN Temperature 36.2 ??C (97.2 ??F) 10/26/2001 12:[address] Respiratory Rate - - Oxygen Saturation - - Inhaled Oxygen Concentration - - Weight 105.2 kg (232 lb) 10/26/2001 12:00 AM MRI TECHNICIAN Height - - Body Mass Index - - Plan of Treatment Health Maintenance Due Date Last Done Comments Tdap 1951 Depression screening for age 12+ 1952 BMI (ht and wt on same day) for age 18+ 1958 Tetanus booster 1960 Zoster (shingles) series for age 50+ (1 of 2) 06/26/19 90 Pneumococcal series for age 65+ (1 of 1 - PCV) 005 COVID-19 vaccine series ( - 2022- season) 3 Influenza for age 65+ 05/23/2024 Care Teams Radio Station Engineer Relationship Specialty Start Date End Date Leela Chu MD [id number] [place] [id number] PCP - General 10/09/23
--- OUTSIDE RECORDS SUMMARY | 2024-04-09 09:21 | XMS_ITS | Clinical Summary ---
Author Organization [facility] Address [address] [place] [address] Care Team Providers Care Accountant Controller Name Role Phone None Reported, Pcp Primary Care Provider Unavail able Source Comments Patient records contain information from all sites at [facility]. For routine questions regarding patient records, call [phone] during business hours, M-F 8:00 AM - 5:00 PM Central Time. Record requests for emergency care only can be directed to [phone] at any time.[facility] Allergies No known active allergies Medications Medication Sig Dispensed Refills Start Date End Date Status amLODIPine (NORVASC) 5 mg tablet Take 5 mg by mouth daily. Active hydroCHLOROthiazid e (HYDRODIURIL) 25 mg tablet Take 25 mg by mouth daily. Active metoprolol tartrate (LOPRESSOR) 50 mg tablet Take 1 tablet (50 mg total) by mouth 2 (two) times a day. 60 tablet 11 07/17/2022 Active pravastatin (PRAVACHOL) 40 mg tablet Take 1 tablet (40 mg total) by mouth daily. Do not start until 08/12/22, when you are finished with the Atorvastatin prescription 30 tablet 08/12/2022 Active omeprazole (PriLOSEC OTC) 20 mg [...] Pravastatin you were taking before 30 tablet 07/17/2022 Active aspirin 325 mg tablet Take [...] Sex Assigned at Male 09/03/2022 12:46 PM MAIL TELLER Gender Identity Male 09/03/2022 12:46 PM MAIL TELLER Sexual Orientation Straight 09/03/2022 12 :46 PM MAIL TELLER Last Filed Vital Signs Vital Sign Reading Time Taken Comments Blood Pressure 120/69 07/17/2022 12:00 PM CDT Pulse 79 07/17/2022 12:25 PM CDT Temperature 36.4 ??C (97.5 ??F) 07/17/2022 12:25 PM C DT Respiratory Rate 16 07/17/2022 12:25 PM CDT Oxygen Saturation 95% 07/17/2022 12:25 PM CDT Inhaled Oxygen Concentration - - Weight 114 kg (251 lb 15.8 oz) 09/03/2022 1:03 P M MAIL TELLER Height 177.8 cm (5' 10) 07/12/2022 12:43 [...] PHQ-2) 09/22/2023 Fall Risk Screen (Annual) 09/22/2023 COVID-19 Vaccine (2022-2 4 season) 2024 10/01/2023, 09/26/2022, 06/28/2021, Additional history exists Influenza Vaccine (#1) 2024 , 08/05/2022, 09/18/2021, Additional history exists DTaP,Tdap,and Td Vaccines (2 - Td or Tdap) 09/04/2025 09/04/2015 Pneumococcal vaccine (65+ years) Completed 09/04/20 15, 03/06/2007 Zoster Vaccines Completed 06/10/2023, 12/21, 09/03/2011 Medical Devices Implanted Type Area Coal Cutter Device Identifier Shelf Expiration Date Model / Serial / Lot Hardware E.G. Pins/Screws/Rods Hardware e.g. pins/screws/ rods Left: Leg Knee Implant Knee Implant Right: Knee Stent Inlay 7fr X 24cm - Sanders [id number] Implanted:Qty: 1 on 07/02/2012 Ureteral Stent C.R.Bard Description:Device Manufactu rer - Bard Patient Care Division. Device Status Text - [id number]. Procedures Procedure Name Priority Date/Time Associated Diagnosis Comments BASIC METABOLIC PANEL, S/P Routine 07/12/2022 7:29 AM CDT from Last 3 Months or Most Recently Relevant to Health Maintenance Results * (ABNORMAL) Basic Metabolic Panel (07/12/2022 7:29 AM CDT) Potassium, S 4.0 3.6 - 5.2 mmol/L 07/12/2022 8:48 AM CDT DTL Sodium, S 136 135 - 145 mmol/L 07/12/2022 8:48 AM CDT DTL Chloride, S 97(L) 98 - 107 mmol/L 07/12/2022 8:48 AM CDT DTL Bicarbonate, S 28 22 - 29 mmol/L 07/12/2022 8:48 AM CDT DTL Anion Gap 11 7 - 15 07/12/2022 8:48 AM CDT DTL BUN (Blood Urea Nitrogen), S 22 8 - 24 mg/dL 07/12/2022 8:48 AM CDT DTL Creatinine 1.54(H) 0.74 - 1.35 mg/dL 07/12/2022 8:48 AM CDT DTL Estimated GFR (eGFR) 45(L) >=60 mL/min/BSA 07/12/2022 8:48 AM CDT DTL Comment: Estimated GFR calculated using the 2020 CKD_EPI creatinine equation. Calcium, Total, S 9.7 8.8 - 10.2 mg/dL 07/12/2022 8:48 AM CDT DTL Glucose, S 140 70 - 140 mg/dL 07/12/2022 8:48 AM CDT DTL Blood (Blood, Venous) 07/12/2022 7:29 AM CDT 07/12/2022 8:24 AM CDT Conor Wang M.D. LAB BLOOD ADD-ON [facility] [address] [place] [address], [place] DTL [facility] [place] [address] [place] [address] from Last 3 Months or Most Recently Relevant to Health Maintenance Advance Directives For more information, please contact: [phone] * Full Code (Latest Code Status on File) Date Activated Date Inactivated Comments 07/12/2022 12:54 PM 07/17/2022 2:47 PM Question Answer Comments Full Code: Discussed * Full Code Date Activated Date Inactivated Comments 07/10/2022 1:36 AM 07/12/2022 12:40 PM Question Answer Comments Full Code: Discussed Care Teams Accountant Controller Relationship Specialty Start Date End Date None Reported, Pcp PCP - General Family Medicine 07/09/22
--- OUTSIDE RECORDS SUMMARY | 2024-04-09 09:21 | XMS_ITS | Referral Summary ---
Author Organization [facility] Address [address] [place] [address] Care Team Providers Care Car Repairer Helper Name Role Phone None Reported, Pcp Primary Care Provider Unavail able Source Comments Patient records contain information from all sites at [facility]. For routine questions regarding patient records, call [phone] during business hours, M-F 8:00 AM - 5:00 PM Central Time. Record requests for emergency care only can be directed to [phone] at any time.[facility] Allergies No known active allergies Medications Medication [...] Sex Assigned at Male 09/03/2022 12:46 PM COTTAGE SUPERVISOR Gender Identity Male 09/03/2022 12:46 PM COTTAGE SUPERVISOR Sexual Orientation Straight 09/03/2022 12 :46 PM COTTAGE SUPERVISOR Last Filed Vital Signs Vital Sign Reading Time Taken Comments Blood Pressure 120/69 07/17/2022 12:00 PM CDT Pulse 79 07/17/2022 12:25 PM CDT Temperature 36.4 ??C (97.5 ??F) 07/17/2022 12:25 PM C DT Respiratory Rate 16 07/17/2022 12:25 PM CDT Oxygen Saturation 95% 07/17/2022 12:25 PM CDT Inhaled Oxygen Concentration - - Weight 114 kg (251 lb 15.8 oz) 09/03/2022 1:03 P M COTTAGE SUPERVISOR Height 177.8 cm (5' 10) 07/12/2022 12:43 PM CDT Body Mass Index 36.16 07/12/2022 12:43 PM CDT Plan of Treatment Not on file Medical Devices Implanted Type Area Bonding Supervisor Device Identifier Shelf Expiration Date Model / Serial / Lot Hardware E.G. Pins/Screws/Rods Hardware e.g. pins/screws/ rods Left: Leg Knee Implant Knee Implant Right: Knee Stent Inlay 7fr X 24cm - Sanders [id number] Implanted:Qty: 1 on 07/02/2012 Ureteral Stent C.R.Bard Description:Device Manufactu rer - Bard Patient Care Division. Device Status Text - [id number]. Procedures Procedure Name Priority Date/Time Associated Diagnosis Comments BASIC METABOLIC PANEL, S/P Routine 07/12/2022 7:29 AM CDT from Last 3 Months or Most Recently Relevant to Health Maintenance Results * (ABNORMAL) Basic Metabolic Panel (07/12/2022 7:29 AM CDT) [facility] Potassium, S 4.0 3.6 - 5.2 mmol/L [...] CDT Conor Wang M.D. LAB BLOOD ADD-ON [facility] [address] [place] [address], [place] DTL [facility] [address] [place] [address] from Last 3 Months or Most Recently Relevant to Health Maintenance Advance Directives For more information, please contact: [phone] * Full Code (Latest Code Status on File) Date Activated Date Inactivated Comments 07/12/2022 12:54 PM 07/17/2022 2:47 PM Question Answer Comments Full Code: Discussed * Full Code Date Activated Date Inactivated Comments 07/10/2022 1:36 AM 07/12/2022 12:40 PM Question Answer Comments Full Code: Discussed Care Teams Car Repairer Helper Relationship Specialty Start Date End Date None Reported, Pcp PCP - General Family Medicine 07/09/22
--- OUTSIDE RECORDS SUMMARY | 2024-04-09 09:21 | XMS_ITS ---
Author Organization [facility] Address [address] [place] [address] Care Team Providers Care Vulcanizing Machine Operator Name Role Phone Unavailable Unavailable Unavailable Surgery Details Not on file Complications Check Surgery Details section. Procedure Estimated Blood Loss Check Surgery Details section. Procedure Findings Check Surgery Details section. Procedure Specimens Taken Check Surgery Details section.
== END 2024-04-09 09:16 | disposition home or self-care (01) ==
PROVIDERS: PCP Family Medicine; Visit Provider Family Medicine
DX: E78.5 Hyperlipidemia, unspecified (principal); I10 Essential (primary) hypertension
CPT/HCPCS: 80048; 80061

== ENCOUNTER 2024-06-04 13:51 | Outpatient (CLI) | payer MEDICARE, BC, SELFPAY ==
--- OUTSIDE RECORDS SUMMARY | 2024-06-04 13:56 | XMS_ITS | Referral Summary ---
Author Organization [facility] Address [address] [place] [address] Care Team Providers Care Center Maker Hand Name Role Phone None Reported, Pcp Primary Care Provider Unavail able Source Comments Patient records contain information from all sites at [facility]. For routine questions regarding patient records, call [phone] during business hours, M-F 8:00 AM - 5:00 PM Central Time. Record requests for emergency care only can be directed to [phone] at any time.[facility] Allergies No known active allergies Medications Medication [...] Sex Assigned at Male 09/03/2022 12:46 PM GATE CLERK Gender Identity Male 09/03/2022 12:46 PM GATE CLERK Sexual Orientation Straight 09/03/2022 12 :46 PM GATE CLERK Last Filed Vital Signs Vital Sign Reading Time Taken Comments Blood Pressure 120/69 07/17/2022 12:00 PM CDT Pulse 79 07/17/2022 12:25 PM CDT Temperature 36.4 ??C (97.5 ??F) 07/17/2022 12:25 PM C DT Respiratory Rate 16 07/17/2022 12:25 PM CDT Oxygen Saturation 95% 07/17/2022 12:25 PM CDT Inhaled Oxygen Concentration - - Weight 114 kg (251 lb 15.8 oz) 09/03/2022 1:03 P M GATE CLERK Height 177.8 cm (5' 10) 07/12/2022 12:43 PM CDT Body Mass Index 36.16 07/12/2022 12:43 PM CDT Plan of Treatment Not on file Medical Devices Implanted Type Area Carbon Rod Inserter Device Identifier Shelf Expiration Date Model / Serial / Lot Hardware E.G. Pins/Screws/Rods Hardware e.g. pins/screws/ rods Left: Leg Knee Implant Knee Implant Right: Knee Stent Inlay 7fr X 24cm - Sanders [id number] Implanted:Qty: 1 on 07/02/2012 Ureteral Stent [employer].Bard Description:Device Manufactu rer - Bard Patient Care Division. Device Status Text - [id number]. Procedures Procedure Name Priority Date/Time Associated Diagnosis Comments BASIC METABOLIC PANEL, S/P Routine 07/12/2022 7:29 AM CDT from Last 3 Months or Most Recently Relevant to Health Maintenance Results * (ABNORMAL) Basic Metabolic Panel (07/12/2022 7:29 AM CDT) [facility] Potassium, S 4.0 3.6 - 5.2 mmol/L [...] AM CDT 07/12/2022 8:24 AM CDT Conor Wagn M.D. LAB BLOOD ADD-ON [facility] [address] [place] [address], [place] DTL [facility] [address] [place] [address] from Last 3 Months or Most Recently Relevant to Health Maintenance Advance Directives For more information, please contact: [phone] * Full Code (Latest Code Status on File) Date Activated Date Inactivated Comments 07/12/2022 12:54 PM 07/17/2022 2:47 PM Question Answer Comments Full Code: Discussed * Full Code Date Activated Date Inactivated Comments 07/10/2022 1:36 AM 07/12/2022 12:40 PM Question Answer Comments Full Code: Discussed Care Teams Center Maker Hand Relationship Specialty Start Date End Date None Reported, Pcp PCP - General Family Medicine 07/09/22
--- OUTSIDE RECORDS SUMMARY | 2024-06-04 13:56 | XMS_ITS | Clinical Summary ---
Author Organization [facility] Address [place], [place] [address] Care Team Providers Care Assistant Professor Of Mathematics Name Role Phone Leela Chu MD Primary Care Provider [phone] Medications Medication Sig Dispensed Refills Start Date [...] Comments Blood Pressure 130/70 10/26/2001 12:00 AM CLERICAL SUPERVISOR Pulse 80 11/12/2000 12:00 AM CLERICAL SUPERVISOR Temperature 36.2 ??C (97.2 ??F) 10/26/2001 12:[address] Respiratory Rate - - Oxygen Saturation - - Inhaled Oxygen Concentration - - Weight 105.2 kg (232 lb) 10/26/2001 12:00 AM CLERICAL SUPERVISOR Height - - Body Mass Index - - Plan of Treatment Health Maintenance Due Date Last Done Comments Tdap 1951 Depression screening for age 12+ 1952 BMI (ht and wt on same day) for age 18+ 1958 Tetanus booster 1960 Zoster (shingles) series for age 50+ (1 of 2) 06/26/19 90 RSV vaccine for adults or pr egnancy (1 - 1-dose 60+ series) 2000 Pneumococcal series for age 65+ (1 of 1 - PCV) 005 COVID-19 vaccine series ( - 2022- season) 4 Influenza for age 65+ 05/23/2024 Care Teams Assistant Professor Of Mathematics Relationship Specialty Start Date End Date Leela Chu MD [address] [place] [id number] PCP - General 10/09/23
--- OUTSIDE RECORDS SUMMARY | 2024-06-04 13:56 | XMS_ITS ---
Author Organization [facility] Address [address] [place] [address] Care Team Providers Care Radiographer Mammographer Name Role Phone Unavailable Unavailable Unavailable Surgery Details Not on file Complications Check Surgery Details section. Procedure Estimated Blood Loss Check Surgery Details section. Procedure Findings Check Surgery Details section. Procedure Specimens Taken Check Surgery Details section.
--- OUTSIDE RECORDS SUMMARY | 2024-06-04 13:56 | XMS_ITS | Clinical Summary ---
Author Organization [facility] Address [address] [place] [address] Care Team Providers Care Shake Packer Name Role Phone None Reported, Pcp Primary Care Provider Unavail able Source Comments Patient records contain information from all sites at [facility]. For routine questions regarding patient records, call [phone] during business hours, M-F 8:00 AM - 5:00 PM Central Time. Record requests for emergency care only can be directed to [phone] at any time.[facility] Allergies No known active allergies Medications [...] Sex Assigned at Male 09/03/2022 12:46 PM DIRECTOR OF VENDOR MANAGEMENT Gender Identity Male 09/03/2022 12:46 PM DIRECTOR OF VENDOR MANAGEMENT Sexual Orientation Straight 09/03/2022 12 :46 PM DIRECTOR OF VENDOR MANAGEMENT Last Filed Vital Signs Vital Sign Reading Time Taken Comments Blood Pressure 120/69 07/17/2022 12:00 PM CDT Pulse 79 07/17/2022 12:25 PM CDT Temperature 36.4 ??C (97.5 ??F) 07/17/2022 12:25 PM C DT Respiratory Rate 16 07/17/2022 12:25 PM CDT Oxygen Saturation 95% 07/17/2022 12:25 PM CDT Inhaled Oxygen Concentration - - Weight 114 kg (251 lb 15.8 oz) 09/03/2022 1:03 P M DIRECTOR OF VENDOR MANAGEMENT Height 177.8 cm (5' 10) 07/12/2022 12:43 [...] 12/21, 09/03/2011 Medical Devices Implanted Type Area Intensive Care Anaesthetist Device Identifier Shelf Expiration Date Model / Serial / Lot Hardware E.G. Pins/Screws/Rods Hardware e.g. pins/screws/ rods Left: Leg Knee Implant Knee Implant Right: Knee Stent Inlay 7fr X 24cm - Sanders [id number] Implanted:Qty: 1 on 07/02/2012 Ureteral Stent [employer].Bard Description:Device Manufactu rer - [employer] Patient Care Division. Device Status Text - [id number]. Procedures Procedure Name Priority Date/Time Associated Diagnosis [...] CDT Conor Wang M.D. LAB BLOOD ADD-ON [facility] [address] [place] [address], [place] DTL [facility] [address] [place] [address] from Last 3 Months or Most Recently Relevant to Health Maintenance Advance Directives For more information, please contact: [phone] * Full Code (Latest Code Status on File) Date Activated Date Inactivated Comments 07/12/2022 12:54 PM 07/17/2022 2:47 PM Question Answer Comments Full Code: Discussed * Full Code Date Activated Date Inactivated Comments 07/10/2022 1:36 AM 07/12/2022 12:40 PM Question Answer Comments Full Code: Discussed Care Teams Shake Packer Relationship Specialty Start Date End Date None Reported, Pcp PCP - General Family Medicine 07/09/22
== END 2024-06-04 13:52 | disposition home or self-care (01) ==
PROVIDERS: PCP Family Medicine; Visit Provider Family Medicine
DX: R60.0 Localized edema (principal); Z13.29 Encounter for screening for other suspected endocrine disorder; Z13.21 Encounter for screening for nutritional disorder
CPT/HCPCS: 82607; 84443

== ENCOUNTER 2024-08-23 11:31 | Outpatient (CLI) | payer MEDICARE, BC, SELFPAY ==
--- OUTSIDE RECORDS SUMMARY | 2024-08-23 11:34 | XMS_ITS | Clinical Summary ---
Author Organization [facility] Address [place], [place] [address] Care Team Providers Care Director Sales Training Name Role Phone Leela Chu MD Primary Care Provider [phone] Medications Medication Sig Dispensed Refills Start Date [...] Comments Blood Pressure 130/70 10/26/2001 12:00 AM EXPORT SPECIALIST Pulse 80 11/12/2000 12:00 AM EXPORT SPECIALIST Temperature 36.2 C (97.2 F) 10/26/2001 12:00 AM EXPORT SPECIALIST Respiratory Rate - - Oxygen Saturation - - Inhaled Oxygen Concentration - - Weight 105.2 kg (232 lb) 10/26/2001 12:00 AM EXPORT SPECIALIST Height - - Body Mass Index - - Plan of Treatment Health Maintenance Due Date Last Done Comments Tdap 1951 Depression screening for age 12+ 1952 BMI (ht and wt on same day) for age 18+ 1958 Tetanus booster 1960 Zoster (shingles) series for age 50+ (1 of 2) 06/26/19 90 Pneumococcal series for age 65+ (1 of 1 - PCV) 005 RSV vaccine for adults or pr egnancy (1 - 1-dose 75+ series) 2015 COVID-19 vaccine series ( - 2023-25 season) 4 Influenza for age 65+ 05/23/2024 Care Teams Director Sales Training Relationship Specialty Start Date End Date Leela Chu MD [address] [place] [id number] PCP - General 10/09/23
== END 2024-08-23 11:32 | disposition home or self-care (01) ==
LOC: LKVREF 11:33
PROVIDERS: PCP Family Medicine; Visit Provider Family Medicine
DX: I10 Essential (primary) hypertension (principal)
CPT/HCPCS: 80048

== ENCOUNTER 2024-10-05 12:31 | Outpatient (CLI) | payer MEDICARE, BC, SELFPAY | END 2024-10-05 12:32 | disposition home or self-care (01) | LOC: INJ CL 12:31 | PROVIDERS: PCP Family Medicine; Visit Provider Family Medicine | DX: M17.12 Unilateral primary osteoarthritis, left knee (principal); M25.562 Pain in left knee | CPT/HCPCS: 64454 ==

== ENCOUNTER 2024-10-19 12:03 | Outpatient (CLI) | payer MEDICARE, BC, SELFPAY | END 2024-10-19 12:04 | disposition home or self-care (01) | LOC: INJ CL 12:03 | PROVIDERS: PCP Family Medicine; Visit Provider Family Medicine | DX: M17.12 Unilateral primary osteoarthritis, left knee (principal); M25.562 Pain in left knee; G89.29 Other chronic pain | CPT/HCPCS: 64624; J2250; J3010 ==

== ENCOUNTER 2024-11-23 09:34 | Outpatient (CLI) | payer MEDICARE, BC, SELFPAY | END 2024-11-23 09:35 | disposition home or self-care (01) | LOC: INJ CL 09:35 | PROVIDERS: PCP Family Medicine; Visit Provider Family Medicine | DX: M54.16 Radiculopathy, lumbar region (principal); M51.369 Other intervertebral disc degeneration, lumbar region without mention of lumbar back pain or lower extremity pain | CPT/HCPCS: 62323; J0702; Q9966 ==

== ENCOUNTER 2025-01-04 12:54 | Outpatient (CLI) | payer MEDICARE, BC, SELFPAY | END 2025-01-04 12:55 | disposition home or self-care (01) | LOC: INJ CL 12:54 | PROVIDERS: PCP Family Medicine; Visit Provider Family Medicine | DX: M54.16 Radiculopathy, lumbar region (principal); M48.062 Spinal stenosis, lumbar region with neurogenic claudication | CPT/HCPCS: 62323; J0702; Q9966 ==

== ENCOUNTER 2025-02-15 12:28 | Outpatient (CLI) | payer MEDICARE, BC, SELFPAY | END 2025-02-15 12:29 | disposition home or self-care (01) | LOC: INJ CL 12:29 | PROVIDERS: PCP Family Medicine; Visit Provider Family Medicine | DX: M54.16 Radiculopathy, lumbar region (principal); M48.062 Spinal stenosis, lumbar region with neurogenic claudication; M51.369 Other intervertebral disc degeneration, lumbar region without mention of lumbar back pain or lower extremity pain | CPT/HCPCS: 62323; J0702; Q9966 ==

== ENCOUNTER 2025-06-21 10:36 | Outpatient (CLI) | payer MEDICARE, BC, SELFPAY | END 2025-06-21 10:37 | disposition home or self-care (01) | LOC: LKVREF 10:43 | PROVIDERS: PCP Family Medicine; Visit Provider Family Medicine | DX: I10 Essential (primary) hypertension (principal) | CPT/HCPCS: 80048 ==